=== PATIENT | female | born 1955 | race Caucasian/White ===

== ENCOUNTER 2023-01-29 12:22 | Inpatient (IN) ==
[2023-01-29 13:46] LABS: Basophils # (auto) 0.04 K/uL (0-0.2); Basophils % (auto) 0.3 %; Hemoglobin 15.2 g/dl (12.0-16.0); Immature Granulocytes # (auto) 0.06 K/uL (0.01-0.20); Immature Granulocytes % (auto) 0.5 %; Lymphocytes # (auto) 0.83 K/uL (1.2-3.4); Lymphocytes % (auto) 6.3 %; Mean Corpuscular Hemoglobin 30.3 pg (25.0-34.0); Mean Corpuscular Hgb Conc 34.5 g/dL (32.0-36.0); Mean Corpuscular Volume 87.6 fL (80.0-100.0); Mean Platelet Volume 10.8 fL (9.4-12.4); Monocytes # (auto) 0.99 K/uL (0.11-0.59); Monocytes % (auto) 7.5 %; Neutrophils % (auto) 85.4 %; Platelet Count 300 K/uL (130-400); RDW Coefficient of Variation 13.9 % (11.5-14.5); RDW Standard Deviation 44.3 fL (36.4-46.3); Red Blood Count 5.02 M/uL (4.20-5.40); White Blood Count 13.12 K/ul (4.8-10.8)
[2023-01-29 13:59] LABS: Alanine Aminotransferase 52 U/L (7-52); Albumin Level 4.3 gm/dl (3.4-5.0); Alkaline Phosphatase 131 U/L (34-104); Anion Gap 10 (3-11); Aspartate Aminotransferase 99 U/L (13-39); BUN Creatinine Ratio 29.4 (10-20); Bilirubin,Total 0.8 mg/dl (0.2-1.0); Blood Urea Nitrogen 25 mg/dl (6-23); Calcium 10.8 mg/dl (8.6-10.3); Carbon Dioxide 25 mmol/L (21-32); Chloride 100 mmol/L (98-107); Est GFR (African American) 82.2 ml/min; Est GFR (Non-African American) 70.9 ml/min; Globulin 4.2 gm/dl (2.5-4.0); Glucose 114 mg/dl (70-99(Fasting)); Potassium 4.1 mmol/L (3.5-5.1); Sodium 135 mmol/L (136-145); Total Protein 8.5 gm/dl (6.0-8.3)
[2023-01-29 14:09] LABS: Troponin I High Sensitivity 336.1 pg/ml (0-14)
[2023-01-29] MEDS ORDERED: SODIUM CHLORIDE 0.9% 1000ML 2,000 ML IV ONE (14:34)
--- NOTE | 2023-01-29 14:37 | Emergency Department Note ---
Impression & Plan Bilateral pulmonary embolism, COVID-19, Acute dehydration, Rhabdomyolysis, Elevated troponin ED Provider Note Name: HARRISON WALLACE Age: 67 Sex: F Arrives Via: Walk-In Informant: Patient, Family ED Provider: Car Douglas MD Chief Complaint: Illness Impression: As per impression above Medical Decision Makin-year-old female with a history of anxiety, hypertension, smoking arrives for evaluation of worsening shortness of breath, weakness, fatigue. Patient arrives somewhat confused unwell appearing dehydrated diffuse wheezing and mild hypoxia to 90-92% on room air. She is complaining of left flank pain but also body aches and generalized weakness. Her story is a bit vague on top of this. Patient though does not look well. Labs, blood cultures, lactate sent. Initial EKG reveals sinus tachycardia with nonspecific ST changes but no overt STEMI morphology. She was given empiric IV fluids 2 L given how dehydrated she appears. She was empirically given IV cefepime for sepsis management. Given the confusion a CT of the head was obtained which is fortunately negative. A CT of the chest with angio was obtained as she has an elevated troponin and mild hy poxia. This reveals multiple bilateral PEs. There is no overt heart strain appreciated. I furthermore got a CT of the abdomen pelvis given the left flank pain which is unremarkable. I am suspicious the left flank pain may be due to a PE versus just muscle spasms from what eventually tested positive for COVID. After fluids, DuoNeb patient is vastly improved his breathing much more comfortably and is in minimal distress. Confusion has essentially resolved and she is answering questions much more easily. She is not overly excited about staying but I think it is important she stay. Her labs are consistent with some rhabdo which would explain the amount of body discomfort she has as well as the fact she is just been sitting around. I am suspicious that her primary issue is likely COVID. COVID likely led to worsening weakness body aches sitting around as well as the PEs. This would also along with the elevated troponin. I did discuss the case with hospitalist will bring her in. I discussed steroids with them and they will manage it from there. I did start the patient on heparin given her multiple PEs after discussing the risks and benefits with the patient. Triage/Nursing Notes reviewed by Me Differentials: Infection, dehydration, metabolic abnormality, hypo/hyperglycemia, electrolyte disturbance, anemia, hypoxia, cardiac sources, i ntracerebral event, toxicologic, neurologic, as well as other pathologies. Vital Signs: reviewed and remarkable for mild hypoxia, tachycardia Interventions: 2 L normal saline bolus IV, heparin IV, cefepime IV, DuoNeb Labs:Reviewed and remarkable for elevated troponin, elevated CK, multiple other lab abnormalities all reviewed by me Imaging:Reviewed chest x-ray as per my interpretation no overt infiltrate pneumothorax or effusion CT of the head as per my informal interpretation no intracranial hemorrhage/mass. Confirmed by radiologist. CT of the chest with IV contrast angio as per my interpretation bilateral PEs. Confirmed by radiologist see their full report. CT abdomen pelvis with IV contrast as per my informal interpretation reveals no obstruction, free air, free fluid, renal stone or other concerning finding. This was confirmed by radiologist. EKG as per my interpretation. Indication shortness of breath. Sinus tachycardia at 106 bpm QTc 467. There is no ectopy. There are nonspecific ST changes throughout without overt STEMI morphology. There is no previous EKG for comparison. Cardiac/Tele Monitoring: Cardiac Monitoring: An Order was placed for continuous cardiac monitoring. The monitor shows a rate of 105 with a sinus tach rhythm. Consults:[facility] Radiologist regarding PEs on CT Plan: Disposition:Hospitalization. Condition: Fair History of Present Illness:67-year-old female arrives for evaluation of illness. Patient with several days of worsening fatigue exhaustion. She started having left lower back pain over the last few days. She has apparently been just sitting in a chair confused for the last 24 hours. Patient has not been eating or drinking for the last few days either. She notes her low back hurts her and she has body aches all over. She notes some mild neck pain but this is chronic. No photophobia or neck stiffness. Patient notes a history of smoking and does not feel her breathing is worse than typical, she does have a diagnosis of COPD per family. Patient denies any new medications or anti biotics. She has not taken her medicines in several days. She has no history of cardiac disease that she is aware of. Past History: Hypertension and anxiety. Right arm surgery Home Medications: Blood pressure medication and Xanax Allergies:NKDA Vitals:Blood Pressure: 152/97, Pulse 105, RR 18, T 36.5C, O2 93% on RA Physical Exam: GENERAL: Patient is ill appearing and in mild distress. NECK: No masses appreciated, nomeningismus, trachea is midline. RESPIRATORY: No dyspnea. Clear to auscultation and equal bilaterally. No wheeze, no rhonchi. CARDIOVASCULAR: Tachycardic.No murmurs, rubs, gallops appreciated. GASTROINTESTINAL: Abdomen soft, non-tender, no peritonitis.Bowel sounds positive.No masses appreciated. BACK: No midline tenderness, vague left CVA tenderness EXTREMITIES: Normal motion all extremities, no cyanosis, no edema. NEUROLOGIC: Patient is awake answering questions sometimes incorrectly somewhat confused, no neurodeficits appreciated SKIN: No rash, no jaundice, no diaphoresis. PSYCH: Appropriate GCS: 15 ED Course: Times/Reassessments: Extensive repeat evaluations. Heart rate has come down with fluids and her mental status is vastly improved after hydration and breathing treatment. Critical Care: I have personally spent 45 minutes of critical care time in the direct management of this patient. Acute bilateral PEs secondary to COVID in setting of elevated CK, Troponin and confusion. This was a life/limb threatening event. This 45 minutes is in excess of all separately billable procedures. Car Douglas MD Past Med/Surg History Medical History (Updated 01/29/23 @ 21:49 by Car Douglas MD) Bilateral pulmonary embolism Social History Smoking Status: Current some day smoker Tobacco Type: Cigarettes Second Hand Exposure: No; Do You Dip or Chew Tobacco: No; Tobacco Cessation Education Requested by Patient: No Hx Alcohol Use: Yes Alcohol type: beer Hx Substance Use: No Preferred Language: Spanish Communication Ability: Impaired Lead Housekeeper Required: No Beliefs That Will Affect Care: None Current Living Situation: Spouse Other Information That Helps Us Care for You: No Feels Safe at Home: Yes Safety Concerns: Feels Safe At This Time Assistive Devices: None Allergies Allergies Allergy/AdvReac Type Severity Reaction Status Date / Time No Known Allergies Allergy Unverified 01/29/23 16:59 Home Meds Home Medications Medication Instructions Recorded Confirmed acetaminophen 325 mg tablet 325 mg PO DAILY PRN Pain 01/29/23 01/29/23 (Tylenol) alprazolam 1 mg tablet 1 mg PO TID 01/29/23 01/29/23 amlodipine 5 mg-benazepril 10 mg 1 cap PO DAILY 01/29/23 01/29/23 capsule Results & Data (ED) Vital Signs Vital Signs - 24 hr 01/29/23 12:31 01/29/23 14:28 01/29/23 14:26 Temperature 36.5 C 37.2 C Temperature Source Temporal Artery Scan Oral Pulse Rate 115 H 105 H Pulse Rate [Right Finger] 106 H Pulse Rhythm [Right Finger] Regular Pulse Strength [Right Finger] Normal Respiratory Rate 18 22 Respiratory Effort / Characteristics Non-Labored Spontaneous Respiratory Depth Normal Respiratory Pattern Regular Blood Pressure 152/97 H Blood Pressure [Right Arm] 157/107 H Blood Pressure Mean 115 Blood Pressure Mean [Right Arm] 123 Blood Pressure Position [Right Arm] Semi-fowlers Pulse Oximetry 93 92 Oxygen Delivery Method Room Air Room Air Oxygen Flow Rate Sepsis Recent Fever Within 48 Hours No Sepsis New/Unexplained Change in Mental Status N/A Sepsis Action Taken by Nursing No Action Required 01/29/23 16:00 Temperature 37.2 C Temperature Source Oral Pulse Rate Pulse Rate [Right Finger] 105 H Pulse Rhythm [Right Finger] Regular Pulse Strength [Right Finger] Normal Respiratory Rate 22 Respiratory Effort / Characteristics Non-Labored Spontaneous Respiratory Depth Normal Respiratory Pattern Regular Blood Pressure Blood Pressure [Right Arm] 143/91 H Blood Pressure Mean Blood Pressure Mean [Right Arm] 108 Blood Pressure Position [Right Arm] Semi-fowlers Pulse Oximetry 93 Oxygen Delivery Method Nasal Cannula Oxygen Flow Rate 2 Sepsis Recent Fever Within 48 Hours Sepsis New/Unexplained Change in Mental Status Sepsis Action Taken by Nursing Laboratory Data 01/29/23 13:16 01/29/23 13:16 Lab Results 01/29/23 01/29/23 01/29/23 Range/Units 13:16 13:16 15:02 WBC 13.12 H (4.8-10.8) K/ul RBC 5.02 (4.20-5.40) M/uL Hgb 15.2 (12.0-16.0) g/dl Hct 44.0 (37.0-47.0) % MCV 87.6 (80.0-100.0) fL MCH 30.3 (25.0-34.0) pg MCHC 34.5 (32.0-36.0) g/dL RDW Std Deviation 44.3 (36.4-46.3) fL RDW Coeff of Laquita 13.9 (11.5-14.5) % Plt Count 300 (130-400) K/uL MPV 10.8 (9.4-12.4) fL Immature Gran % (Auto) 0.5 % Neut % (Auto) 85.4 % Lymph % (Auto) 6.3 % Austin % (Auto) 7.5 % Eos % (Auto) 0.0 % Baso % (Auto) 0.3 % Neut # (Auto) 11.20 H (1.40-6.50) K/uL Lymph # (Auto) 0.83 L (1.2-3.4) K/uL Austin # (Auto) 0.99 H (0.11-0.59) K/uL Eos # (Auto) 0.00 (0-0.50) K/uL Baso # (Auto) 0.04 (0-0.2) K/uL Immature Gran # (Auto) 0.06 (0.01-0.20) K/uL Sodium 135 L (136-145) mmol/L Potassium 4.1 (3.5-5.1) mmol/L Chloride 100 (98-107) mmol/L Carbon Dioxide 25 (21-32) mmol/L Anion Gap 10 (3-11) BUN 25 H (6-23) mg/dl Creatinine 0.85 (0.6-1.2) mg/dl Est Cr Clr Drug Dosing Not Reportable Est GFR ( Amer) 82.2 ml/min Est GFR (Non-Af Amer) 70.9 ml/min BUN/Creatinine Ratio 29.4 H (10-20) Glucose 114 H (70-99(Fasting)) mg/dl Lactate (0.4-2.0) mmol/L Calcium 10.8 H (8.6-10.3) mg/dl Magnesium 2.1 (1.7-2.4) mg/dl Total Bilirubin 0.8 (0.2-1.0) mg/dl AST 99 H (13-39) U/L ALT 52 (7-52) U/L Alkaline Phosphatase 131 H (34-104) U/L Total Creatine Kinase 2389 H (26-192) U/L Troponin I High Sens 336.1 H* 337.3 H* (0-14) pg/ml C-Reactive Protein 12.69 H (0-0.5) mg/dl Total Protein 8.5 H (6.0-8.3) gm/dl Albumin 4.3 (3.4-5.0) gm/dl Globulin 4.2 H (2.5-4.0) gm/dl Albumin/Globulin Ratio 1.0 (0.9-2) Procalcitonin (0-0.5) ng/ml Adenovirus (PCR) (NotDetected) B. pertussis DNA (PCR) (NotDetected) B.parapertussis DNA PCR (NotDetected) C. pneumoniae DNA (PCR) (NotDetected) Coronavirus OC43 (PCR) (NotDetected) Coronavirus HKU1 (PCR) (NotDetected) Coronavirus 229E (PCR) (NotDetected) SARS-CoV-2 (PCR) (NotDetected) Coronavirus NL63 (PCR) (NotDetected) Human Metapneumovir PCR (NotDetected) Influenza Type A (PCR) (NotDetected) Influenza Type B (PCR) (NotDetected) M. pneumoniae (PCR) (NotDetected) Parainfluenza 1 (PCR) (NotDetected) Parainfluenza 2 (PCR) (NotDetected) Parainfluenza 3 (PCR) (NotDetected) Parainfluenza 4 (PCR) (NotDetected) RSV (PCR) (NotDetected) Entero/Rhino (PCR) (NotDetected) 01/29/23 01/29/23 01/29/23 Range/Units 15:02 15:08 15:30 WBC (4.8-10.8) K/ul RBC (4.20-5.40) M/uL Hgb (12.0-16.0) g/dl Hct (37.0-47.0) % MCV (80.0-100.0) fL MCH (25.0-34.0) pg MCHC (32.0-36.0) g/dL RDW Std Deviation (36.4-46.3) fL RDW Coeff of Laquita (11.5-14.5) % Plt Count (130-400) K/uL MPV (9.4-12.4) fL Immature Gran % (Auto) % Neut % (Auto) % Lymph % (Auto) % Austin % (Auto) % Eos % (Auto) % Baso % (Auto) % Neut # (Auto) (1.40-6.50) K/uL Lymph # (Auto) (1.2-3.4) K/uL Austin # (Auto) (0.11-0.59) K/uL Eos # (Auto) (0-0.50) K/uL Baso # (Auto) (0-0.2) K/uL Immature Gran # (Auto) (0.01-0.20) K/uL Sodium (136-145) mmol/L Potassium (3.5-5.1) mmol/L Chloride (98-107) mmol/L Carbon Dioxide (21-32) mmol/L Anion Gap (3-11) BUN (6-23) mg/dl Creatinine (0.6-1.2) mg/dl Est Cr Clr Drug Dosing Est GFR ( Amer) ml/min Est GFR (Non-Af Amer) ml/min BUN/Creatinine Ratio (10-20) Glucose (70-99(Fasting)) mg/dl Lactate 1.4 (0.4-2.0) mmol/L Calcium (8.6-10.3) mg/dl Magnesium (1.7-2.4) mg/dl Total Bilirubin (0.2-1.0) mg/dl AST (13-39) U/L ALT (7-52) U/L Alkaline Phosphatase (34-104) U/L Total Creatine Kinase (26-192) U/L Troponin I High Sens (0-14) pg/ml C-Reactive Protein (0-0.5) mg/dl Total Protein (6.0-8.3) gm/dl Albumin (3.4-5.0) gm/dl Globulin (2.5-4.0) gm/dl Albumin/Globulin Ratio (0.9-2) Procalcitonin 0.15 (0-0.5) ng/ml Adenovirus (PCR) Not Detected (NotDetected) B. pertussis DNA (PCR) Not Detected (NotDetected) B.parapertussis DNA PCR Not Detected (NotDetected) C. pneumoniae DNA (PCR) Not Detected (NotDetected) Coronavirus OC43 (PCR) Not Detected (NotDetected) Coronavirus HKU1 (PCR) Not Detected (NotDetected) Coronavirus 229E (PCR) Not Detected (NotDetected) SARS-CoV-2 (PCR) DETECTED A* (NotDetected) Coronavirus NL63 (PCR) Not Detected (NotDetected) Human Metapneumovir PCR Not Detected (NotDetected) Influenza Type A (PCR) Not Detected (NotDetected) Influenza Type B (PCR) Not Detected (NotDetected) M. pneumoniae (PCR) Not Detected (NotDetected) Parainfluenza 1 (PCR) Not Detected (NotDetected) Parainfluenza 2 (PCR) Not Detected (NotDetected) Parainfluenza 3 (PCR) Not Detected (NotDetected) Parainfluenza 4 (PCR) Not Detected (NotDetected) RSV (PCR) Not Detected (NotDetected) Entero/Rhino (PCR) Not Detected (NotDetected) Administered Medications Heparin Sodium/Dextrose (Heparin Sodium/Dextrose) 25,000 units in 500 mls @ 20 mls/hr IV .Q24H DINO; Protocol Stop: 02/28/23 17:14 Last Admin: 01/29/23 17:45 Dose: 1,000 units/hr, 20 mls/hr Documented By: AP Co-signed By: MES Thiamine HCl 100 mg/ Syringe 10 mls @ 2 mls/min IV QAM DINO Stop: 02/28/23 18:59 Last Admin: 01/29/23 20:37 Dose: 2 mls/min Documented By: PK Folic Acid 1 mg/ Syringe 10 mls @ 5 mls/min IV QAM DINO Stop: 02/28/23 18:59 Last Admin: 01/29/23 20:37 Dose: 5 mls/min Documented By: PK Pantoprazole Sodium 40 mg/ (Syringe) 10 mls @ 5 mls/min IV BID DINO Stop: 02/28/23 20:59 Last Admin: 01/29/23 20:37 Dose: 5 mls/min Documented By: PK Cefepime HCl 2,000 mg/ Syringe 20 mls @ 5 mls/min IV Q8H DINO; Protocol Stop: 02/05/23 21:59 Last Admin: 01/29/23 20:38 Dose: 5 mls/min Documented By: PK Discontinued Medications Albuterol (Albut/Ipratrop 3mg/0.5mg Neb 3 Ml Vial) 12 ml NEB ONE ONE; Protocol Stop: 01/29/23 16:04 Last Admin: 01/29/23 16:21 Dose: 12 ml Documented By: CAW Gabapentin (Gabapentin 600 Mg Tab) 1,200 mg PO NOW ONE Stop: 01/29/23 18:48 Last Admin: 01/29/23 20:36 Dose: 1,200 mg Documented By: PK Heparin Sodium (Porcine) (Heparin Sod (Porcine) 1000 Unit/Ml) 1 units IV NOW ONE Stop: 01/29/23 17:13 Last Admin: 01/29/23 18:55 Dose: Not Given Documented By: MES Heparin Sodium (Porcine) (Heparin Sod (Porcine) 1000 Unit/Ml) 4,000 units IV NOW ONE Stop: 01/29/23 17:46 Last Admin: 01/29/23 17:44 Dose: 4,000 units Documented By: AP Co-signed By: STEVEN Heparin Sodium/Dextrose (Heparin Iv Adult Wt-Based Standard With Bolus Protocol) 1 each IV Q15M [facility]; Protocol Stop: 01/29/23 17:46 Last Admin: 01/29/23 18:57 Dose: Not Given Documented By: Admin: 01/29/23 18:57 Dose: Not Given Documented By: Admin: 01/29/23 18:57 Dose: Not Given Documented By: Admin: 01/29/23 18:55 Dose: Not Given Documented By: STEVEN Sodium Chloride (Nss 1000ml) 2,000 mls @ 999 mls/hr IV .Q2H1M ONE Stop: 01/29/23 16:34 Last Infusion: 01/29/23 21:26 Dose: 0 mls/hr Documented By: Admin: 01/29/23 14:59 Dose: 999 mls/hr Documented By: CHARISSEW Cefepime HCl (Maxipime) 2,000 mg in 20 mls @ 5 mls/min IV NOW STA; Protocol Stop: 01/29/23 15:27 Last Admin: 01/29/23 15:37 Dose: 5 mls/min Documented By: STEVEN Vancomycin HCl 1,250 mg/ (Sodium Chloride) 525 mls @ 200 mls/hr IV NOW ONE Stop: 01/29/23 19:14 Last Admin: 01/29/23 17:02 Dose: 200 mls/hr Documented By: COSMO Ioversol (Ioversol 350 Mg 125ml Prefilled Syringe) 117 ml IV ONCE ONE Stop: 01/29/23 15:55 Last Admin: 01/29/23 15:54 Dose: 117 ml Documented By: PAIGE Imaging Data Radiologist's Impression: Chest X-Ray 01/29/23 14:34 XR chest 1V portable HISTORY: 67 years-old Female Confusion, SOB, AMS acutely altered mental status COMPARISON: None TECHNIQUE: AP view of the chest FINDINGS: Cardiomediastinal and hilar silhouettes are within normal limits. Atherosclerosis of the aorta. No pneumothorax, large pleural effusion, or overt pulmonary edema or lobar airspace consolidation. Bones appear grossly intact. IMPRESSION: No acute process. ACT 112: Negative or not required by law. The above report was generated using voice recognition software. It may contain grammatical, syntax or spelling errors. Electronically signed by: Kris Morel M.D. 01/29/2023 2:56 PM Abdomen/Pelvis CT 01/29/23 15:23 CT abd pelvis IV con only CLINICAL HISTORY: left flank pain, septic TECHNIQUE: Helical axial images of the abdomen and pelvis were obtained and displayed. Automated dose lowering techniques and/or adjustment according to patient size were utilized for this exam. This exam was performed with intravenous contrast. COMPARISON: None available at the time of this dictation. FINDINGS: Lower chest: Bibasilar atelectasis versus scarring is seen. Liver: Unremarkable. No focal lesions are seen. Gallbladder and biliary tree: No calcified gallstones. Normal caliber wall. No intra- or extrahepatic biliary ductal dilation. Pancreas: Unremarkable, no focal lesions. Spleen: Unremarkable. Adrenals: Unremarkable. Kidneys and ureters: Unremarkable. Bladder: Unremarkable. Reproductive organs: Unremarkable. Bowel: Diverticulosis is seen without evidence of diverticulitis. The appendix is normal. Lymph nodes Retroperitoneal: Unremarkable. Pelvic: Unremarkable. Mesenteric: Unremarkable. Peritoneum: Normal. Vessels: Atherosclerotic calcifications are seen. Abdominal wall: A fat-containing umbilical hernia is seen. Bones: Degenerative changes in the visualized spine. IMPRESSION: No acute abnormalities and in particular no evidence of left obstructive stone or diverticulitis. Diverticulosis is seen. ACT 112: Negative or not required by law. Electronically signed by: Carlos Pederson M.D. 01/29/2023 4:11 PM Chest CTA 01/29/23 15:23 CT angio chest PE protocol CT DOSE: 1572.67 mGy.cm HISTORY: 67 years-old Female with PE. Acute shortness of breath TECHNIQUE: Multiple CTA images of the chest were obtained after the intravenous administration of 117 ml Optiray. Coronal and sagittal MIPS were obtained from the axial data set and were submitted for review. All measurements were obtained according to NASCET criteria. A dose lowering technique was utilized adhering to the principles of ALARA. COMPARISON: CT abdomen and pelvis of same day FINDINGS: CTA: Mild cardiomegaly with moderate coronary artery calcifications. Atherosclerosis of the thoracic aorta without aneurysm or dissection. Segmental and subsegmental pulmonary emboli are noted within a bibasilar predominant distribution however are noted within all lobes bilaterally. Respiratory motion artifact limits the study. Mild straightening of the intraventricular septum. CT CHEST: Multinodular thyroid. No lymphadenopathy. Emphysema with bronchitis. No pneumothorax, pleural effusion or overt pulmonary edema. Subsegmental bibasilar atelectasis. No suspicious pulmonary nodules or masses. Central airways are patent. No acute process of the imaged upper abdomen. Unremarkable soft tissues. No acute fracture. IMPRESSION: 1. Limited exam secondary to respiratory motion artifact. 2. Bilateral segmental and subsegmental pulmonary emboli with findings suspicious for associated right heart strain. 3. No pleural effusion or airspace consolidation. 4. Emphysema with bronchitis. ACT 112: Negative or not required by law. The above report was generated using voice recognition software. It may contain grammatical, syntax or spelling errors. Electronically signed by: Kris Morel M.D. 01/29/2023 4:[address] 01/29/23 15:[address] DOSE: HISTORY: Confusion TECHNIQUE: Multiaxial CT images of the head were performed without the use of intravenous contrast. Automated exposure control was utilized for this study. A dose lowering technique was utilized adhering to the principles of ALARA. Comparison: None. Findings: The paranasal sinuses and mastoid air cells are clear. The calvarium and skull base are intact. There is no mass, hematoma, midline shift, acute infarct. White matter hypodensity is nonspecific but suggestive of microvascular ischemic change. The ventricles and sulci demonstrate mild age-related involutional changes. Impression: No acute intracranial abnormality. Atrophy and microvascular ischemic changes. ACT 112: Negative or not required by law. Electronically signed by: Devaughn Ritchie M.D. 01/29/2023 4:09 PM Discharge Plan Visit Data Chief Complaint: Back Injury/Pain Stated Complaint: BACK PAIN, FEET SWOLLEN ED Provider: Car Douglas Discharge Problem: Bilateral pulmonary embolism, COVID-19, Acute dehydration, Rhabdomyolysis, Elevated troponin Patient Disposition: Admitted As Inpatient Discharge Instructions Interventions: ED Discharge Assessment Last Done: 01/29/23 19:17
--- NOTE | 2023-01-29 14:57 | XRay Report ---
XR chest 1V portable HISTORY: 67 years-old Female Confusion, SOB, AMS acutely altered mental status COMPARISON: None TECHNIQUE: AP view of the chest FINDINGS: Cardiomediastinal and hilar silhouettes are within normal limits. Atherosclerosis of the aorta. No pn eumothorax, large pleural effusion, or overt pulmonary edema or lobar airspace consolidation. Bones a ppear grossly intact. IMPRESSION: No acute process. ACT 112: Negative or not required by law. The above report was generated using voice recognition software. It may contain grammatical, syntax o r spelling errors. Electronically signed by: Kris Morel M.D. 01/29/2023 2:56 PM
[2023-01-29] MEDS ORDERED: CEFEPIME 2,000 MG/20 ML VIAL IV STA (15:24)
[2023-01-29 15:52] LABS: C Reactive Protein 12.69 mg/dl (0-0.5)
[2023-01-29] MEDS ORDERED: IOVERSOL 350 MG 125mL Prefilled Syringe IV ONE (15:54)
[2023-01-29 16:01] LABS: Magnesium 2.1 mg/dl (1.7-2.4); Troponin I High Sensitivity 337.3 pg/ml (0-14)
[2023-01-29] MEDS ORDERED: ALBUT/IPRATROP 3MG/0.5MG NEB 3 ML VIAL NEB ONE (16:03)
--- NOTE | 2023-01-29 16:10 | CT Scan Report ---
HEAD CT NONCONTRAST CT DOSE: HISTORY: Confusion TECHNIQUE: Multiaxial CT images of the head were performed without the use of intravenous contrast. A utomated exposure control was utilized for this study. A dose lowering technique was utilized adheri ng to the principles of ALARA. Comparison: None. Findings: The paranasal sinuses and mastoid air cells are clear. The calvarium and skull base are int act. There is no mass, hematoma, midline shift, acute infarct. White matter hypodensity is nonspecifi c but suggestive of microvascular ischemic change. The ventricles and sulci demonstrate mild age-rela errol involutional changes. Impression: No acute intracranial abnormality. Atrophy and microvascular ischemic changes. ACT 112: Negative or not required by law. Electronically signed by: Devaughn Ritchie M.D. 01/29/2023 4:09 PM
--- NOTE | 2023-01-29 16:12 | CT Scan Report ---
CT abd pelvis IV con only CLINICAL HISTORY: left flank pain, septic TECHNIQUE: Helical axial images of the abdomen and pelvis were obtained and displayed. Automated dose lowering techniques and/or adjustment according to patient size were utilized for this exam. This e xam was performed with intravenous contrast. COMPARISON: None available at the time of this dictation. FINDINGS: Lower chest: Bibasilar atelectasis versus scarring is seen. Liver: Unremarkable. No focal lesions are seen. Gallbladder and biliary tree: No calcified gallstones. Normal caliber wall. No intra- or extrahepatic biliary ductal dilation. Pancreas: Unremarkable, no focal lesions. Spleen: Unremarkable. Adrenals: Unremarkable. Kidneys and ureters: Unremarkable. Bladder: Unremarkable. Reproductive organs: Unremarkable. Bowel: Diverticulosis is seen without evidence of diverticulitis. The appendix is normal. Lymph nodes Retroperitoneal: Unremarkable. Pelvic: Unremarkable. Mesenteric: Unremarkable. Peritoneum: Normal. Vessels: Atherosclerotic calcifications are seen. Abdominal wall: A fat-containing umbilical hernia is seen. Bones: Degenerative changes in the visualized spine. IMPRESSION: No acute abnormalities and in particular no evidence of left obstructive stone or diverticulitis. Div erticulosis is seen. ACT 112: Negative or not required by law. Electronically signed by: Carlos Pederson M.D. 01/29/2023 4:11 PM
--- NOTE | 2023-01-29 16:13 | Electrocardiogram Report ---
Test Reason : Blood Pressure : / mmHG Vent. Rate : 106 BPM Atrial Rate : 106 BPM P-R Int : 154 ms QRS Dur : 072 ms QT Int : 352 ms P-R-T Axes : 046 062 044 degrees QTc Int : 467 ms Sinus tachycardia Minimal voltage criteria for LVH, may be normal variant Borderline ECG No previous ECGs available Confirmed by Almas Ballard ([id number]) on 01/29/2023 4:12:49 PM Referred By: Confirmed By:Almas Ballard
[2023-01-29] MEDS ORDERED: VANCOMYCIN HCL 1,250 MG in SODIUM CHLORIDE 0.9% 500 ML IV ONE (16:37)
[2023-01-29] MEDS ORDERED: VANCOMYCIN CONSULT ACTIVE PRN ×2 (16:37→18:47)
--- NOTE | 2023-01-29 16:41 | CT Scan Report ---
CT angio chest PE protocol CT DOSE: 1572.67 mGy.cm HISTORY: 67 years-old Female with PE. Acute shortness of breath TECHNIQUE: Multiple CTA images of the chest were obtained after the intravenous administration of 117 ml Optiray. Coronal and sagittal MIPS were obtained from the axial data set and were submitted for review. All measurements were obtained according to NASCET criteria. A dose lowering technique was u tilized adhering to the principles of ALARA. COMPARISON: CT abdomen and pelvis of same day FINDINGS: CTA: Mild cardiomegaly with moderate coronary artery calcifications. Atherosclerosis of the thoracic aorta without aneurysm or dissection. Segmental and subsegmental pulmonary emboli are noted within a bibas ilar predominant distribution however are noted within all lobes bilaterally. Respiratory motion darrin fact limits the study. Mild straightening of the intraventricular septum. CT CHEST: Multinodular thyroid. No lymphadenopathy. Emphysema with bronchitis. No pneumothorax, pleural effusio n or overt pulmonary edema. Subsegmental bibasilar atelectasis. No suspicious pulmonary nodules or ma sses. Central airways are patent. No acute process of the imaged upper abdomen. Unremarkable soft tissues. No acute fracture. IMPRESSION: 1. Limited exam secondary to respiratory motion artifact. 2. Bilateral segmental and subsegmental pulmonary emboli with findings suspicious for associated righ t heart strain. 3. No pleural effusion or airspace consolidation. 4. Emphysema with bronchitis. ACT 112: Negative or not required by law. The above report was generated using voice recognition software. It may contain grammatical, syntax o r spelling errors. Electronically signed by: Kris Morel M.D. 01/29/2023 4:39 PM
[2023-01-29 16:44] LABS: Appearance Urine Clear (Clear); Bacteria Urine Automated Negative (Negative); Bilirubin Urine Negative (Negative); Blood Urine 1+ (Negative); Color Urine Yellow; Epithelial Cell Urine Auto 20-30 /lpf (0-5); Glucose Urine UA Negative (Negative); Ketones Urine Trace (Negative); Leukocyte Esterase Urine 1+ (Negative); Nitrite Urine Negative (Negative); Protein Urine Trace (Negative); RBC Urine Automated 0-4 /hpf (0-4); Specific Gravity Urine 1.026 (1.000-1.030); Urobilinogen Urine Negative (Negative)
[2023-01-29] MEDS ORDERED: Heparin IV Adult Wt-Based Standard WITH Bolus Protocol IV STA (16:56)
--- NOTE | 2023-01-29 17:00 | History & Physical Report ---
Date of Service January 29, 2023 Assessment & Plan (1) Bilateral pulmonary embolism: Plan Ms. Dacosta is a 67 year old female that presents to the ED today with fatigue and decreased appetite with back pain and lower extremity swelling. Chest CTA positive for bilateral segmental/subsegmental PE with right heart strain; troponin 337.3 which I suspect is related to the right heart strain and PE. Head CT negative for acute intracranial process. Abdominal and pelvis CT reports diverticulosis; otherwise unremarkable. Chest x-ray negative for acute cardiopulmonary disease.Leukocytosis WBC 13.12, lactate 1.4, CRP elevated 12.69, Pro-Tray negative. Covid + in the ED. Received one hour long neb. Trace ketonuria with WBC and UA 10-30. Started on vancomycin plus cefepime in the ED with IV fluids.Started on Heparin gtt; obtain ECHO, BL LE doppler US, Cardiology and Pulmonary consultation; empiric abx for treatment of leukocytosis with elevated neutrophils. Overall, generally poorly cared for individual. Bilateral pulmonary embolism with R heart strain: Admit to PCU WELLS score: 6 Chest CTA revealed segmental/subsegmental PE with right heart strain Obtain bilateral lower extremity venous Doppler Troponin 337.3; Initially 336; will trend x1;suspect this is related to right heart strain CRP 12.69, will check BNP Started on Heparin drip in ED ECG in AM; ST on monitor. Audible IV/ LSB murmur. Cardiology and Pulm consult placed Covid positive: WBC 13.12; empirically treat with Vanco and Cefepime and adjust based on culture results Blood, urine and stool cultures pending Consider steroids on 2LNC SpO2 97% HTN: Takes amlodipine-benazepril; continue Alcohol Use Disorder: Reports drinking 8-10 beers most days; last drink was yesterday AWSS scale in place; Thiamine and Folic Acid IV for now Hold on Banana bag until BNP back Tremulous on exam Check Vitamin B12 Anxiety and Depression: Takes alprazolam; continue Receptive to [facility]; consult placed Requested to speak to them by herself. Disposition: PCP:Dr. [place] independent provider CODE STATUS: Full code VTE prophylaxis: On Heparin gtt I spent a total of 88 minutes coordinating, documenting, and providing care for this patient excluding time spent in the performance of separately billed services. All of the aforementioned completed while collaborating with the assigned attending physician for a full treatment plan. Please see their addendum for further details. History of Present Illness Chief Complaint: PE Primary Care Provider: [place] Roland Ms. Dacosta is a 67 year old female that presents to the ED today with fatigue and decreased appetite with back pain and lower extremity swelling that started over the past three days. She is quite sedentary at home and per her family is in her bedroom a lot isolating herself. She denies any recent illness or cough; however, tested positive for Covid in the ED without hypoxia. Chest CTA positive for bilateral segmental/subsegmental PE with right heart strain; troponin 337.3 which I suspect is related to the right heart strain and PE. Head CT negative for acute intracranial process. Abdominal and pelvis CT reports diverticulosis; otherwise unremarkable. Chest x-ray negative for acute cardiopulmonary disease. Leukocytosis WBC 13.12, lactate 1.4, CRP elevated 12.69, Pro-Tray negative. Trace ketonuria with WBC and UA 10-30. Pt admits to ingesting 8-10 beers most days; her last drink was two days ago. Started on vancomycin plus cefepime in the ED with IV fluids. Patient denies headache, dizziness, visual or auditory changes, nausea, vomiting, diarrhea, abdominal pain or tenderness, urinary or bowel changes, recent falls or trauma. Sitting in her hospital bed she is AAOx4 but slow to respond and not back to baseline. Denies tobacco or recreational drug use. General weakness BL UP 4/5, BL LE 4/5; no edema. Plan to focus on PE treatment with ECHO, Doppler ultrasound, Cardiology consult, Pulmonary consult, empiric abx for treatment of leukocytosis with elevated neutrophils. Overall, generally poorly cares for herself. Patient will be admitted for further evaluation and management. Please see A/P for further details Allergies Allergy/AdvReac Type Severity Reaction Status Date / Time No Known Allergies Allergy Unverified 01/29/23 16:59 Home Medications Medication Instructions Recorded Confirmed Type acetaminophen 325 mg tablet 325 mg PO DAILY PRN Pain 01/29/23 01/29/23 History (Tylenol) alprazolam 1 mg tablet 1 mg PO TID 01/29/23 01/29/23 History amlodipine 5 mg-benazepril 10 mg 1 cap PO DAILY 01/29/23 01/29/23 History capsule Past Med/Surg History Medical History (Updated 01/29/23 @ 16:57 by ROSALBA Rivera) Bilateral pulmonary embolism Social History Smoking Status: Former smoker Preferred Language: Hungarian Feels Safe at Home: Yes Review of Systems Review of Systems: Neuro: (-) Falls, trauma, slurred speech HEENT: (-) JACK, dizziness, dysphagia, visual or auditory changes CV: (-) CP, palpitations, swelling Resp: (+) SOB GI: (-) appetite changes, N/V/D, bowel changes : (-) urinary changes Skin: (-) rashes Psych: (+) anxiety, depression (+) disheveled Physical Exam Physical Exam: Neuro: AAOx4, PERRLA, no aphagia, memory changes, CNII-XII grossly intact HEENT: head normocephalic, dry mucus membranes CV: S1/S2, (+) LSB Grade IV/ murmur, (-) edema, cap refill < 3 seconds Resp: Lungs expiratory wheezes upper lung heath. On 2LNC GI: Abdomen S/NT/ND, Ax4 bowel sounds, (-) CVA tenderness Musculoskeletal: 4/5 B/L UE strength, 4/5 B/L LE strength. No gait disturbance Skin: (-) rashes , (-) erythema. Psych: euthymic mood Results & Data Results & Data Vital Signs (Past 12 Hours) Vital Signs Temp Pulse Pulse Resp BP BP Pulse Ox 01/29/23 14:26 37.2 C 106 H 22 157/107 H 92 01/29/23 14:28 105 H 01/29/23 12:31 36.5 C 115 H 18 152/97 H 93 O2 Del Method 01/29/23 14:26 Room Air 01/29/23 14:28 01/29/23 12:31 Room Air Laboratory Results Short CBC 01/29/23 Range/Units 13:16 WBC 13.12 H (4.8-10.8) K/ul Hgb 15.2 (12.0-16.0) g/dl Hct 44.0 (37.0-47.0) % Plt Count 300 (130-400) K/uL BMP 01/29/23 13:16 Sodium 135 L Potassium 4.1 Chloride 100 Carbon Dioxide 25 BUN 25 H Creatinine 0.85 Glucose 114 H Calcium 10.8 H Cardiac Enzymes 01/29/23 Range/Units 15:02 Total Creatine Kinase 2389 H (26-192) U/L Liver Function 01/29/23 Range/Units 13:16 Total Bilirubin 0.8 (0.2-1.0) mg/dl AST 99 H (13-39) U/L ALT 52 (7-52) U/L Alkaline Phosphatase 131 H (34-104) U/L Albumin 4.3 (3.4-5.0) gm/dl Urine 01/29/23 Range/Units Unknown Urine Color Yellow Urine Appearance Clear (Clear) Urine pH 6.0 (4.5-7.5) Ur Specific [place] 1.026 (1.000-1.030) Urine Protein Trace H (Negative) Urine Glucose (UA) Negative (Negative) Diagnostic Findings Chest X-Ray 01/29/23 14:34 XR chest 1V portable HISTORY: 67 years-old Female Confusion, SOB, AMS acutely altered mental status COMPARISON: None TECHNIQUE: AP view of the chest FINDINGS: Cardiomediastinal and hilar silhouettes are within normal limits. Atherosclerosis of the aorta. No pneumothorax, large pleural effusion, or overt pulmonary edema or lobar airspace consolidation. Bones appear grossly intact. IMPRESSION: No acute process. ACT 112: Negative or not required by law. The above report was generated using voice recognition software. It may contain grammatical, syntax or spelling errors. Electronically signed by: Kris Morel M.D. 01/29/2023 2:56 PM Abdomen/Pelvis CT 01/29/23 15:23 CT abd pelvis IV con only CLINICAL HISTORY: left flank pain, septic TECHNIQUE: Helical axial images of the abdomen and pelvis were obtained and displayed. Automated dose lowering techniques and/or adjustment according to patient size were utilized for this exam. This exam was performed with intravenous contrast. COMPARISON: None available at the time of this dictation. FINDINGS: Lower chest: Bibasilar atelectasis versus scarring is seen. Liver: Unremarkable. No focal lesions are seen. Gallbladder and biliary tree: No calcified gallstones. Normal caliber wall. No intra- or extrahepatic biliary ductal dilation. Pancreas: Unremarkable, no focal lesions. Spleen: Unremarkable. Adrenals: Unremarkable. Kidneys and ureters: Unremarkable. Bladder: Unremarkable. Reproductive organs: Unremarkable. Bowel: Diverticulosis is seen without evidence of diverticulitis. The appendix is normal. Lymph nodes Retroperitoneal: Unremarkable. Pelvic: Unremarkable. Mesenteric: Unremarkable. Peritoneum: Normal. Vessels: Atherosclerotic calcifications are seen. Abdominal wall: A fat-containing umbilical hernia is seen. Bones: Degenerative changes in the visualized spine. IMPRESSION: No acute abnormalities and in particular no evidence of left obstructive stone or diverticulitis. Diverticulosis is seen. ACT 112: Negative or not required by law. Electronically signed by: Carlos Pederson M.D. 01/29/2023 4:11 PM Chest CTA 01/29/23 15:23 CT angio chest PE protocol CT DOSE: 1572.67 mGy.cm HISTORY: 67 years-old Female with PE. Acute shortness of breath TECHNIQUE: Multiple CTA images of the chest were obtained after the intravenous administration of 117 ml Optiray. Coronal and sagittal MIPS were obtained from the axial data set and were submitted for review. All measurements were obtained according to NASCET criteria. A dose lowering technique was utilized adhering to the principles of ALARA. COMPARISON: CT abdomen and pelvis of same day FINDINGS: CTA: Mild cardiomegaly with moderate coronary artery calcifications. Atherosclerosis of the thoracic aorta without aneurysm or dissection. Segmental and subsegmental pulmonary emboli are noted within a bibasilar predominant distribution however are noted within all lobes bilaterally. Respiratory motion artifact limits the study. Mild straightening of the intraventricular septum. CT CHEST: Multinodular thyroid. No lymphadenopathy. Emphysema with bronchitis. No pneumothorax, pleural effusion or overt pulmonary edema. Subsegmental bibasilar atelectasis. No suspicious pulmonary nodules or masses. Central airways are patent. No acute process of the imaged upper abdomen. Unremarkable soft tissues. No acute fracture. IMPRESSION: 1. Limited exam secondary to respiratory motion artifact. 2. Bilateral segmental and subsegmental pulmonary emboli with findings suspicious for associated right heart strain. 3. No pleural effusion or airspace consolidation. 4. Emphysema with bronchitis. ACT 112: Negative or not required by law. The above report was generated using voice recognition software. It may contain grammatical, syntax or spelling errors. Electronically signed by: Kris Morel M.D. 01/29/2023 4:[address] 01/29/23 15:[address] DOSE: HISTORY: Confusion TECHNIQUE: Multiaxial CT images of the head were performed without the use of intravenous contrast. Automated exposure control was utilized for this study. A dose lowering technique was utilized adhering to the principles of ALARA. Comparison: None. Findings: The paranasal sinuses and mastoid air cells are clear. The calvarium and skull base are intact. There is no mass, hematoma, midline shift, acute infarct. White matter hypodensity is nonspecific but suggestive of microvascular ischemic change. The ventricles and sulci demonstrate mild age-related involutional changes. Impression: No acute intracranial abnormality. Atrophy and microvascular ischemic changes. ACT 112: Negative or not required by law. Electronically signed by: Devaughn Ritchie M.D. 01/29/2023 4:09 PM Code Status & VTE Plan Code Status Full code in the event of cardiac or respiratory arrest VTE Prophylaxis Plan VTE Prophylaxis will be ordered: Yes Supervising Physician Co-Signing Physician Notes Pt seen and examined by myself, Deb Grimaldo MD on the day of service. Care was coordinated with ROSALBA Flowers. Please refer to her note for additional information. 67yoF with PMhx significant for HTN and anxiety admitted with covid and PEs causing heart strain. Resting comfortably, NC in nares, states she does not want any more bad news. Blowing murmur appreciated on exam. No significant edema. Heparin drip, doppler US, echo, cardiology consult- appreciate recs. Pulmonology consult-appreciate recs. Covid positive- hemodynamically stable, will hold off on remdesivir or steroids at this time. WBC elevated- Urine Cx and Blood cultures pending, stool cultures pending. C ontinue empiric Vanc and Cefepime. Otherwise as above.
[2023-01-29] MEDS ORDERED: MAGNESIUM HYDROXIDE SUSP 30 ML UDC PO PRN (17:11)
[2023-01-29] MEDS ORDERED: ALUMINUM/MAGNESIUM SUSP 30 ML UDC PO PRN (17:11)
[2023-01-29] MEDS ORDERED: ONDANSETRON INJ 2 MG/ML 2 ML VIAL IV PRN (17:11)
[2023-01-29] MEDS ORDERED: POLYETHYLENE (MIRALAX) 17 GM PACK PO PRN (17:11)
[2023-01-29] MEDS ORDERED: HEPARIN SOD (PORCINE) 1000 UNIT/ML IV ONE ×3 (17:12→17:45)
[2023-01-29 17:31] LABS: Adenovirus PCR Not Detected (NotDetected); Bordetella parapertussis PCR Not Detected (NotDetected); Bordetella pertussis PCR Not Detected (NotDetected); Chlamydia pneumoniae PCR Not Detected (NotDetected); Coronavirus 229E PCR Not Detected (NotDetected); Coronavirus HKU1 PCR Not Detected (NotDetected); Coronavirus NL63 PCR Not Detected (NotDetected); Coronavirus OC43PCR Not Detected (NotDetected); Human Metapneumovirus PCR Not Detected (NotDetected); Influenza A PCR Not Detected (NotDetected); Influenza B PCR Not Detected (NotDetected); Mycoplasma pneumoniae PCR Not Detected (NotDetected); Parainfluenza Virus 1 PCR Not Detected (NotDetected); Parainfluenza Virus 2 PCR Not Detected (NotDetected); Parainfluenza Virus 3 PCR Not Detected (NotDetected); Parainfluenza Virus 4 PCR Not Detected (NotDetected); Respiratory Syncytial VirusPCR Not Detected (NotDetected); Rhinovirus/Enterovirus PCR Not Detected (NotDetected)
[2023-01-29] MEDS: HEPARIN SODIUM/DEXTROSE 25,000 UNITS/500 ML BAG IV SCH (17:45)
[2023-01-29] MEDS ORDERED: LORazepam 2 MG/1 ML VIAL IV PRN (17:50)
[2023-01-29 17:57] LABS: Coronavirus CoV-2 (COVID19)PCR DETECTED (NotDetected)
[2023-01-29] MEDS ORDERED: GABAPENTIN 600 MG TAB PO ONE (18:47)
[2023-01-29] MEDS ORDERED: GABAPENTIN 1200MG ALCOHOL WITHDRAWAL LOAD PO STA (18:47)
[2023-01-29] MEDS: Heparin IV Adult Wt-Based Standard WITH Bolus Protocol IV SCH ×2 (18:55→18:57)
--- NOTE | 2023-01-29 20:09 | Pharmacy Report ---
Pharmacy PK ABX Note - Date of Service January 29, 2023 - Assessment and Plan Assessment 67 year old F receiving vancomycin/cefepime for treatment of pulmonary indication. Pertinent microbiologic data includes: blood cultures and urine cultures currently pending. A MRSA nasal swab was ordered Day # 06/23 of antimicrobial therapy. Plan Vancomycin * Loading dose: 1250 mg IV x 1 * Maintenance dose: 750 mg IV every 12 hours * Regimen is predicted to achieve target AUC/HAROON of 400-600 mg/L.hr * Trough to be ordered if continued > 48 hours Pharmacy will continue to follow and will adjust dose/frequency as necessary. Thank you. Pharmacy has transitioned to AUC monitoring for vancomycin. AUC/HAROON is the preferred PK/PD target and is associated with decreased risk of nephrotoxicity compared to traditional trough targets.
[2023-01-29] MEDS: THIAMINE HCL 100 MG in SYRINGE 9 ML IV SCH (20:37)
[2023-01-29] MEDS: FOLIC ACID 1 MG in SYRINGE 9.8 ML IV SCH (20:37)
[2023-01-29] MEDS: PANTOprazole 40 MG in SYRINGE 0 ML IV SCH (20:37)
[2023-01-29] MEDS: CEFEPIME 2,000 MG in SYRINGE 0 ML IV SCH (20:38)
[2023-01-30 01:26] LABS: Partial Thromboplastin Ratio 1.8
[2023-01-30 01:29] LABS: Partial Thromboplastin Time 50.8 Seconds (21.0-31.0)
[2023-01-30] MEDS: GABAPENTIN 600 MG TAB PO SCH ×3 (03:20→17:33)
[2023-01-30] MEDS ORDERED: VANCOMYCIN HCL 750 MG in SODIUM CHLORIDE 0.9% 250 ML IV SCH (04:00)
[2023-01-30] MEDS: CEFEPIME 2,000 MG in SYRINGE 0 ML IV SCH ×3 (05:58→21:13)
--- NOTE | 2023-01-30 07:36 | Ultrasound Report ---
BILATERAL LOWER EXTREMITY VENOUS DOPPLER HISTORY: Bilateral lower extremity pain and swelling. COMPARISON STUDY: None. FINDINGS: There is normal compressibility, flow, and augmentation within the bilateral lower extremit y deep venous systems. IMPRESSION: No DVT within the right or left lower extremity. ACT 112: Negative or not required by law. Electronically signed by: Devaughn Ritchie M.D. 01/30/2023 7:35 AM
[2023-01-30] MEDS: amLODIPine BESYLATE 5 MG TAB PO SCH (08:06)
[2023-01-30] MEDS: ENALAPRIL MALEATE 10 MG TAB PO SCH (08:06)
[2023-01-30 08:23] LABS: Albumin Globulin Ratio 1.1 (0.9-2); Albumin Level 3.2 gm/dl (3.4-5.0); Bilirubin,Total 0.7 mg/dl (0.2-1.0); Calcium 9.2 mg/dl (8.6-10.3); Est GFR (African American) 116.1 ml/min; Est GFR (Non-African American) 100.2 ml/min; Magnesium 1.9 mg/dl (1.7-2.4); Phosphorus 2.8 mg/dl (2.5-4.9); Potassium 3.7 mmol/L (3.5-5.1); Total Protein 6.2 gm/dl (6.0-8.3)
[2023-01-30 09:05] LABS: Hemoglobin 12.7 g/dl (12.0-16.0); Mean Corpuscular Hemoglobin 30.3 pg (25.0-34.0); Mean Corpuscular Hgb Conc 32.6 g/dL (32.0-36.0); Mean Corpuscular Volume 93.1 fL (80.0-100.0); Mean Platelet Volume 11.2 fL (9.4-12.4); Platelet Count 209 K/uL (130-400); RDW Coefficient of Variation 14.2 % (11.5-14.5); RDW Standard Deviation 48.1 fL (36.4-46.3); Red Blood Count 4.19 M/uL (4.20-5.40); White Blood Count 8.11 K/ul (4.8-10.8)
[2023-01-30 09:15] LABS: Amphetamines+Metham, Urine Neg (Neg); Barbiturates, Urine Neg (Neg); Benzodiazepine, Urine Pos (Neg); Cocaine, Urine Neg (Neg); MDMA (Ecstacy), Urine Neg (Neg); Methadone, Urine Neg (Neg); Opiate, Urine Neg (Neg); Phencyclidine, Urine Neg (Neg)
[2023-01-30] MEDS: THIAMINE HCL 100 MG in SYRINGE 9 ML IV SCH (09:34)
[2023-01-30] MEDS: FOLIC ACID 1 MG in SYRINGE 9.8 ML IV SCH (09:34)
[2023-01-30] MEDS: PANTOprazole 40 MG in SYRINGE 0 ML IV SCH (09:34)
--- NOTE | 2023-01-30 09:36 | Cardiology Consultation ---
Date of Consultation January 30, 2023 Assessment & Plan (1) Bilateral pulmonary embolism: (2) Elevated troponin: (3) COVID-19: Plan See attending planning lead's documentation for recommendations and plan of care. Supervising Physician Co-Signing Physician Notes Attending Staff: Pt seen and evaluated with [facility] staff. Concur with observations and plans 67 yo woman presenting with dyspnea and generalized + nonspecific "not feeling well" Noted to have subsegmental PEs COVID + ECHOcardiogram: 01/30/2023 LVEF 70% Ventricle is hyperdynamic + LVH RV size and function are normal PE: No elevation in JVP No LE edema Warm and perfusing Plans: + PE Troponin elevated No RV strain on ECHO Heparin for systemic anticoagulation/treatment of PE May consider transition to DOAC for ongoing PE treatment (PE dosing) No new WMA As patient recovers from COVID, may consider Pharmacologic Stress Test as an outpt K+ goal 4.5-5 Mag++ goal >2 Pt has multiple ASCVD risks Consider ASCVD prevention SBP @ goal Lipid check as an outpt Please call back with any additional questions or challenges Bowen Rivas History of Present Illness Reason for Consultation: Elevated troponin; Possible Right heart strain from PE Requesting Physician: Ms. Blake EDGE Attending Physician: Dr. Rivas History of Present Illness Patient is a 67 year old female admitted for generalized weakness, SOB, and "just not feeling well". Patient is a relatively poor historian. She denies cardiac history or prior evaluation. History includes: 1. Hypertension 2. Alcohol abuse 3. Depression/anxiety Patient admitted after several days of just not feeling well. She has difficulty describing her symptoms. Reports cough and SOB. No fever or chills. No sick contacts. She reports she is mostly alone and 'keeps to herself'. On admission she was found to be COVID +; elevated troponin and CPK. EKG demonstrating NSR with voltage criteria for LVH no acute changes Chest Ct + for acute b/L PE. Started on IV heparin. No recent surgeries. SHe admits to being very sedentary at home. started on antibiotics for bronchitis. At time of consult, patient resting in bed comfortably. Notes generalized weakness, ongoing cough. Remains on oxygen. Denies chest pain. No palpitations. No dizziness. No orthopnea, PND or edema. Allergies Allergy/AdvReac Type Severity Reaction Status Date / Time No Known Allergies Allergy Unverified 01/29/23 16:59 Home Medications Medication Instructions Recorded Confirmed Type acetaminophen 325 mg tablet 325 mg PO DAILY PRN Pain 01/29/23 01/29/23 History (Tylenol) alprazolam 1 mg tablet 1 mg PO TID 01/29/23 01/29/23 History amlodipine 5 mg-benazepril 10 mg 1 cap PO DAILY 01/29/23 01/29/23 History capsule apixaban 5 mg tablet (Eliquis) 5 mg PO UD #74 tabs 01/30/23 Rx Patient History Medical History (Updated 01/30/23 @ 13:53 by Silvestre Cuenca PA-C) Alcohol abuse Bilateral pulmonary embolism Hypertension Social History Smoking Status: Current some day smoker Tobacco Type: Cigarettes Second Hand Exposure: No; Do You Dip or Chew Tobacco: No; Tobacco Cessation Education Requested by Patient: No Hx Alcohol Use: Yes Alcohol type: beer Hx Substance Use: No Preferred Language: Malian Communication Ability: Impaired Customer Experience Intern Required: No Beliefs That Will Affect Care: None Current Living Situation: Spouse Other Information That Helps Us Care for You: No Feels Safe at Home: Yes Safety Concerns: Feels Safe At This Time Assistive Devices: None Review of Systems Review of Systems: All systems reviewed & are unremarkable except as noted in HPI & below Physical Exam Constitutional: WD/WN, vitals as above no acute distress Neck: trachea midline, no thyromegaly Respiratory: no respiratory distress Auscultation: + diminished lung sounds and + rhonchi Cardiovascular: Rate/Rhythm: regular rate and regular rhythm Heart Sounds: + murmur (II/ systolic murmur LSB) Vessels: no JVD Extremities: no edema Gastrointestinal (Abdomen): normal bowel sounds, soft, nontender, no hepatosplenomegaly Skin: no rashes, warm and dry Neurologic: PERRL, EOMI, accommodation nl, no face palsy, no dysarthria Results & Data Vital Signs (Past 12 Hours) Vital Signs Temp Pulse Pulse Resp BP Pulse Ox O2 Del Method 01/30/23 08:00 36.7 C 78 18 150/78 H 94 Nasal Cannula 01/30/23 00:00 97 H 01/29/23 22:54 96 H 01/30/23 03:04 36.8 C 74 18 136/67 95 Room Air 01/29/23 23:17 36.9 C 91 H 18 116/70 96 Nasal Cannula 01/29/23 22:19 Nasal Cannula O2 Flow Rate 01/30/23 08:00 2 01/30/23 00:00 01/29/23 22:54 01/30/23 03:04 01/29/23 23:17 2 01/29/23 22:19 2 Laboratory Results Cardiac Enzymes 01/29/23 01/29/23 01/29/23 Range/Units 13:16 15:02 17:47 AST 99 H (13-39) U/L Troponin I High Sens 336.1 H* 337.3 H* (0-14) pg/ml B-Natriuretic Peptide 321 H (0-100) pg/ml 01/30/23 Range/Units 06:57 AST 65 H (13-39) U/L Troponin I High Sens (0-14) pg/ml B-Natriuretic Peptide (0-100) pg/ml Coagulation 01/29/23 01/30/23 Range/Units 17:47 00:09 APTT 50.8 H* (21.0-31.0) Seconds B-Natriuretic Peptide 321 H (0-100) pg/ml CBC 01/29/23 01/30/23 01/30/23 Range/Units 13:16 06:57 08:15 WBC 13.12 H Cancelled 8.11 (4.8-10.8) K/ul RBC 5.02 Cancelled 4.19 L (4.20-5.40) M/uL Hgb 15.2 Cancelled 12.7 (12.0-16.0) g/dl Hct 44.0 Cancelled 39.0 (37.0-47.0) % Plt Count 300 Cancelled 209 (130-400) K/uL Neut # (Auto) 11.20 H (1.40-6.50) K/uL Lymph # (Auto) 0.83 L (1.2-3.4) K/uL Guthrie # (Auto) 0.99 H (0.11-0.59) K/uL Eos # (Auto) 0.00 (0-0.50) K/uL Baso # (Auto) 0.04 (0-0.2) K/uL Comprehensive Metabolic Panel 01/29/23 01/30/23 Range/Units 13:16 06:57 Sodium 135 L 136 (136-145) mmol/L Potassium 4.1 3.7 (3.5-5.1) mmol/L Chloride 100 108 H (98-107) mmol/L Carbon Dioxide 25 25 (21-32) mmol/L BUN 25 H 13 (6-23) mg/dl Creatinine 0.85 0.50 L D (0.6-1.2) mg/dl Glucose 114 H 90 (70-99(Fasting)) mg/dl Calcium 10.8 H 9.2 (8.6-10.3) mg/dl AST 99 H 65 H (13-39) U/L ALT 52 39 (7-52) U/L Alkaline Phosphatase 131 H 82 (34-104) U/L Total Protein 8.5 H 6.2 D (6.0-8.3) gm/dl Albumin 4.3 3.2 L (3.4-5.0) gm/dl Intake and Output 01/29/23 01/30/23 01/30/23 22:59 06:59 14:59 Intake Total 1999 688 / 2688 Balance 1999 688 / 2688 [place]: [place] [address] 438 / 2438 Heparin Sodium/Dextrose 25,000 173 / 173 units In 500 ml @ 1,000 UNITS/ HR 20 mls/hr IV .Q24H [facility] Rx#: [id number] Sodium Chloride 0.9% 1000ML 2, 2000 / 1999 000 ml @ 999 mls/hr IV .Q2H1M ONE Rx#:[id number] Vancomycin HCl 750 mg In Sodium 265 / 265 Chloride 0.9% 250 ml @ 200 mls /hr IV Q12H [facility] Rx#:[id number] Oral 250 / 250 Other: # Unmeasured Voids 1 Weight 58.9 kg 61.2 kg Weight Measurement Method Built in [facility] Built in [facility] Diagnostic Findings Telemetry reviewed: NSR and sinus tach with HR's ranging 80-110 bmp. She had one episode of non sustained atrial tach yesterday lasting approx 20 beats. EKG: Sinus tachycardia Minimal voltage criteria for LVH, may be normal variant Borderline ECG No previous ECGs available Echo report reviewed dated January 30, 2023: RV is normal in size and function PA systolic pressure is 39 mmHg (mildly elevated) Mild concentric LVH No wall motion abnormalities LV is hyperdynamic. EF > 70% Mild MR Grade I diastolic dysfunction No prior studies for comparison Chest X-Ray 01/29/23 14:34 XR chest 1V portable HISTORY: 67 years-old Female Confusion, SOB, AMS acutely altered mental status COMPARISON: None TECHNIQUE: AP view of the chest FINDINGS: Cardiomediastinal and hilar silhouettes are within normal limits. Atherosclerosis of the aorta. No pneumothorax, large pleural effusion, or overt pulmonary edema or lobar airspace consolidation. Bones appear grossly intact. IMPRESSION: No acute process. ACT 112: Negative or not required by law. The above report was generated using voice recognition software. It may contain grammatical, syntax or spelling errors. Electronically signed by: Kris Morel M.D. 01/29/2023 2:56 PM Abdomen/Pelvis CT 01/29/23 15:23 CT abd pelvis IV con only CLINICAL HISTORY: left flank pain, septic TECHNIQUE: Helical axial images of the abdomen and pelvis were obtained and displayed. Automated dose lowering techniques and/or adjustment according to patient size were utilized for this exam. This exam was performed with intravenous contrast. COMPARISON: None available at the time of this dictation. FINDINGS: Lower chest: Bibasilar atelectasis versus scarring is seen. Liver: Unremarkable. No focal lesions are seen. Gallbladder and biliary tree: No calcified gallstones. Normal caliber wall. No intra- or extrahepatic biliary ductal dilation. Pancreas: Unremarkable, no focal lesions. Spleen: Unremarkable. Adrenals: Unremarkable. Kidneys and ureters: Unremarkable. Bladder: Unremarkable. Reproductive organs: Unremarkable. Bowel: Diverticulosis is seen without evidence of diverticulitis. The appendix is normal. Lymph nodes Retroperitoneal: Unremarkable. Pelvic: Unremarkable. Mesenteric: Unremarkable. Peritoneum: Normal. Vessels: Atherosclerotic calcifications are seen. Abdominal wall: A fat-containing umbilical hernia is seen. Bones: Degenerative changes in the visualized spine. IMPRESSION: No acute abnormalities and in particular no evidence of left obstructive stone or diverticulitis. Diverticulosis is seen. ACT 112: Negative or not required by law. Electronically signed by: Carlos Pederson M.D. 01/29/2023 4:11 PM Chest CTA 01/29/23 15:23 CT angio chest PE protocol CT DOSE: 1572.67 mGy.cm HISTORY: 67 years-old Female with PE. Acute shortness of breath TECHNIQUE: Multiple CTA images of the chest were obtained after the intravenous administration of 117 ml Optiray. Coronal and sagittal MIPS were obtained from the axial data set and were submitted for review. All measurements were obtained according to NASCET criteria. A dose lowering technique was utilized adhering to the principles of ALARA. COMPARISON: CT abdomen and pelvis of same day FINDINGS: CTA: Mild cardiomegaly with moderate coronary artery calcifications. Atherosclerosis of the thoracic aorta without aneurysm or dissection. Segmental and subsegmental pulmonary emboli are noted within a bibasilar predominant distribution however are noted within all lobes bilaterally. Respiratory motion artifact limits the study. Mild straightening of the intraventricular septum. CT CHEST: Multinodular thyroid. No lymphadenopathy. Emphysema with bronchitis. No pneumothorax, pleural effusion or overt pulmonary edema. Subsegmental bibasilar atelectasis. No suspicious pulmonary nodules or masses. Central airways are patent. No acute process of the imaged upper abdomen. Unremarkable soft tissues. No acute fracture. IMPRESSION: 1. Limited exam secondary to respiratory motion artifact. 2. Bilateral segmental and subsegmental pulmonary emboli with findings suspicious for associated right heart strain. 3. No pleural effusion or airspace consolidation. 4. Emphysema with bronchitis. ACT 112: Negative or not required by law. The above report was generated using voice recognition software. It may contain grammatical, syntax or spelling errors. Electronically signed by: Kris Morel M.D. 01/29/2023 4:[address] 01/29/23 15:[address] DOSE: HISTORY: Confusion TECHNIQUE: Multiaxial CT images of the head were performed without the use of intravenous contrast. Automated exposure control was utilized for this study. A dose lowering technique was utilized adhering to the principles of ALARA. Comparison: None. Findings: The paranasal sinuses and mastoid air cells are clear. The calvarium and skull base are intact. There is no mass, hematoma, midline shift, acute infarct. White matter hypodensity is nonspecific but suggestive of microvascular ischemic change. The ventricles and sulci demonstrate mild age-related involutional changes. Impression: No acute intracranial abnormality. Atrophy and microvascular ischemic changes. ACT 112: Negative or not required by law. Electronically signed by: Devaughn Ritchie M.D. 01/29/2023 4:09 PM Venous Doppler Study 01/29/23 18:49 BILATERAL LOWER EXTREMITY VENOUS DOPPLER HISTORY: Bilateral lower extremity pain and swelling. COMPARISON STUDY: None. FINDINGS: There is normal compressibility, flow, and augmentation within the bilateral lower extremity deep venous systems. IMPRESSION: No DVT within the right or left lower extremity. ACT 112: Negative or not required by law. Electronically signed by: Devaughn Ritchie M.D. 01/30/2023 7:35 AM Medications Administered Current Inpatient Medications Acetaminophen (Acetaminophen 325 Mg Tab) 650 mg PO Q4H PRN PRN Reason: Pain or Fever Stop: 02/28/23 17:10 Al Hydrox/Mg Hydrox/Simethicone (Aluminum/Magnesium Susp 30 Ml Udc) 15 ml PO Q4H PRN PRN Reason: Dyspepsia Stop: 02/28/23 17:10 Amlodipine Besylate (Amlodipine Besylate 5 Mg Tab) 5 mg PO DAILY [facility] Stop: 03/01/23 08:59 Last Admin: 01/30/23 08:06 Dose: 5 mg Enalapril Maleate (Enalapril Maleate 10 Mg Tab) 10 mg PO DAILY [facility] Stop: 03/01/23 08:59 Last Admin: 01/30/23 08:06 Dose: 10 mg Gabapentin (Gabapentin 600 Mg Tab) 600 mg PO Q24H [facility] Stop: 02/02/23 10:01 Gabapentin (Gabapentin 600 Mg Tab) 600 mg PO Q12H [facility] Stop: 02/01/23 10:01 Gabapentin (Gabapentin 600 Mg Tab) 600 mg PO Q8H [facility] Stop: 01/31/23 10:01 Gabapentin (Gabapentin 600 Mg Tab) 600 mg PO Q6H [facility] Stop: 01/30/23 10:01 Last Admin: 01/30/23 03:20 Dose: 600 mg Heparin Sodium/Dextrose (Heparin Sodium/Dextrose) 25,000 units in 500 mls @ 20 mls/hr IV .Q24H [facility]; Protocol Stop: 02/28/23 17:14 Last Titration: 01/30/23 02:24 Dose: 1,000 units/hr, 20 mls/hr Thiamine HCl 100 mg/ Syringe 10 mls @ 2 mls/min IV QAM DINO Stop: 02/28/23 18:59 Last Admin: 01/30/23 09:34 Dose: 2 mls/min Folic Acid 1 mg/ Syringe 10 mls @ 5 mls/min IV QAM DINO Stop: 02/28/23 18:59 Last Admin: 01/30/23 09:34 Dose: 5 mls/min Pantoprazole Sodium 40 mg/ (Syringe) 10 mls @ 5 mls/min IV BID DINO Stop: 02/28/23 20:59 Last Admin: 01/30/23 09:34 Dose: 5 mls/min Cefepime HCl 2,000 mg/ Syringe 20 mls @ 5 mls/min IV Q8H [facility]INO; Protocol Stop: 02/05/23 21:59 Last Admin: 01/30/23 05:58 Dose: 5 mls/min Lorazepam (Lorazepam 2 Mg/1 Ml Vial) 1 mg IV ONE PRN; Protocol PRN Reason: EtoH Withdrawal AWSS 6,7,8,9,10 Magnesium Hydroxide (Magnesium Hydroxide Susp 30 Ml Udc) 30 ml PO Q12H PRN PRN Reason: Constipation Stop: 02/28/23 17:10 Ondansetron HCl (Ondansetron Inj 2 Mg/Ml 2 Ml Vial) 4 mg IV Q6H PRN PRN Reason: Nausea Stop: 02/28/23 17:10 Polyethylene Glycol (Polyethylene (Miralax) 17 Gm Pack) 17 gm PO DAILY PRN PRN Reason: Constipation Stop: 02/28/23 17:10
--- NOTE | 2023-01-30 09:53 | Pulmonary Consultation ---
Date of Consultation January 30, 2023 Assessment & Plan (1) Bilateral pulmonary embolism: (2) COVID-19: (3) Tobacco abuse: (4) Alcohol abuse: Plan IMPRESSION: 67-year-old female with significant past medical history of hypertension, tobacco abuse, and alcohol abuse who presents with findings of bilateral pulmonary emboli in the setting of active COVID-19 infection. RECOMMENDATIONS: 1. Bilateral pulmonary emboli - Initially with elevated troponin and slight elevation in BNP. CT without concerning findings of heart strain. Echocardiogram with mild elevation in TAPSE at 35 mmHg. Otherwise, no signs of RIGHT-sided heart strain noted. Patient can be transitioned to oral DOAC with plans to discharge soon. As this is considered provoked in the setting of COVID-19 infection, the patient will warrant anticoagulation therapy for the next 3 to 6 months. Would recommend follow-up echocardiogram to evaluate PASP change after course of anticoagulation. No follow-up CT of the chest necessary. This can be managed by her primary care provider. 2. COVID-19 infection - Patient with cough likely stemming from sequela of viral prodrome. We will add Mucinex. Titrate down oxygen as tolerated. I do not appreciate wheezing on exam findings. Uncertain if utility of steroids at this time. 3. Tobacco abuse - Patient with 20+ pack-year smoking history who quit 3 to 4 years ago. Patient previously had been diagnosed with COPD, however we do not have active records of pulmonary function testing otherwise. Patient likely warrants formal pulmonary function testing in the outpatient setting to confirm this, particularly with extensive smoking history. She is relatively asymptomatic from a pulmonary perspective outside of current admission. Would defer evaluation to her outside provider. Additionally, the patient qualifies for yearly low-dose CT lung cancer screening given her age and smoking history. 4. Alcohol abuse - Encouraged cessation. For withdrawal symptoms in the interim. Patient likely to be discharged in the next 24 to 48 hours otherwise. Thank you for allowing us to participate in the care of this pleasant patient. Pulmonary medicine will sign off at this time. Supervising Physician Co-Signing Physician Notes Patient seen and examined. EMR reviewed. Discussed with critical care SANA and agree with assessment plan as noted. PE in the setting of COVID. Recommend 3 months of anticoagulation. Okay to transition off heparin to direct thrombin inhibitors or Coumadin. If Coumadin is selected the patient will need 5 days of heparin and greater than 24 hours overlap with an INR greater than 2. Would recommend follow-up echocardiogram in 3 months. Suspect the patient can be weaned off of supplemental oxygen. If not, short-term oxygen and outpatient follow-up in 1 to 2 weeks with her primary care provider would be reasonable as I suspect her oxygen requirement will likely resolve. Pulmonary will sign off at this point time. Feel free to contact us with questions or concerns History of Present Illness Reason for Consultation: PE with R heart strain/Covid + Requesting Physician: ROSALBA Medina Attending Physician: Hermelinda Rowley MD History of Present Illness Patient is a 67-year-old female with a significant past medical history of hypertension, anxiety, depression who presented to the emergency department on 01/29 with complaints of generalized fatigue and malaise and body aches. During evaluation, the patient was noted to have an elevated troponin value as well as some oxygen requirement. CTA was obtained which demonstrated bilateral pulmonary emboli. Patient was started on heparin and admitted for further evaluation and management. During the extent of the work-up, the patient tested positive for COVID-19. Pulmonary medicine was consulted for positive pulmonary embolism findings and elevated troponin with concerns for right heart strain. During evaluation in room 214, the patient is awake, alert, and oriented. She reports that she smoked for greater than 20 years at approximately a pack a day. She has previously been evaluated for lung cancer at some point and states that she quit smoking 3 to 4 years ago after that scare. She carries a diagnosis of COPD that was made during hospitalization she describes, but has not been formally worked up including no prior pulmonary function testing. Today, the patient offers no complaints. She is saturating well on 2 L nasal cannula. She has a more mild nonproductive cough. She reports no chest pain, palpitations, or hemoptysis. She denies any personal history of blood clots or bleeding disorders. No family history of the same. She reports no recent long distance travel. No use of hormonal therapies. No known malignancies. Patient has increased her alcohol consumption recently related to her current poor relationship status. She denies drinking every day, but reports when she does she drinks approximately 8-12 beers per day. She denies complaints of prior withdrawal symptoms, however she is unable to quantify the last time she quit drinking. Allergies Allergy/AdvReac Type Severity Reaction Status Date / Time No Known Allergies Allergy Unverified 01/29/23 16:59 Home Medications Medication Instructions Recorded Confirmed Type acetaminophen 325 mg tablet 325 mg PO DAILY PRN Pain 01/29/23 01/29/23 History (Tylenol) alprazolam 1 mg tablet 1 mg PO TID 01/29/23 01/29/23 History amlodipine 5 mg-benazepril 10 mg 1 cap PO DAILY 01/29/23 01/29/23 History capsule apixaban 5 mg tablet (Eliquis) 5 mg PO UD #74 tabs 01/30/23 Rx Patient History Medical History (Updated 01/30/23 @ 13:53 by Silvestre Cuenca PA-C) Alcohol abuse Bilateral pulmonary embolism Hypertension Social History Smoking Status: Current some day smoker Tobacco Type: Cigarettes Second Hand Exposure: No; Do You Dip or Chew Tobacco: No; Tobacco Cessation Education Requested by Patient: No Hx Alcohol Use: Yes Alcohol type: beer Hx Substance Use: No Preferred Language: Danish Communication Ability: Impaired Data Modeling Specialist Required: No Beliefs That Will Affect Care: None Current Living Situation: Spouse Other Information That Helps Us Care for You: No Feels Safe at Home: Yes Safety Concerns: Feels Safe At This Time Assistive Devices: None Review of Systems Review of Systems: A complete 10 point review of systems was reviewed with the patient with pertinent positives and negatives as per history of present illness. All else were negative. Physical Exam Physical Exam: VITAL SIGNS - Vital signs and nursing notes were reviewed. GENERAL - 67-year-old female appearing her stated age who is in no acute distress. Communicates well with provider and answers questions appropriately. NOSE - Midline and without cyanosis. MOUTH/OROPHARYNX - Without perioral cyanosis. NECK - Neck with FROM. LUNGS - Chest wall evaluation demonstrates normal chest wall A:P diameter. Auscultation reveals slightly diminished breath sounds without wheezes, rales, or rhonchi noted. CARDIAC - RRR with S1/S2. No murmur, rubs, or gallops appreciated. ABDOMEN - Abdominal inspection demonstrates flat. BS normoactive all four quadrants. No tenderness, palpable masses, or ascites noted. EXTREMITIES - Nail clubbing not present. No peripheral cyanosis. No pretibial edema present. +3/5 radial palpated throughout. PSYCH - A&Ox3 and cooperates fully with examiner. Pt is very pleasant and interacts well with examiner. Results & Data Results & Data Vital Signs (Past 12 Hours) Vital Signs Temp Pulse Pulse Resp BP Pulse Ox O2 Del Method 01/30/23 08:00 36.7 C 78 18 150/78 H 94 Nasal Cannula 01/30/23 00:00 97 H 01/29/23 22:54 96 H 01/30/23 03:04 36.8 C 74 18 136/67 95 Room Air 01/29/23 23:17 36.9 C 91 H 18 116/70 96 Nasal Cannula 01/29/23 22:19 Nasal Cannula O2 Flow Rate 01/30/23 08:00 2 01/30/23 00:00 01/29/23 22:54 01/30/23 03:04 01/29/23 23:17 2 01/29/23 22:19 2 PG Care Time/CCT Total # of Minutes Spent Total Time Spent with Patient: Total time spent is greater than 50% in coordination of care (as documented) at patient's floor/unit and/or counseling patient: Coding Level of Care Code 51370 IN/OBS CONSULT LVL 4,60M Diagnoses Bilateral pulmonary embolism I26.99 COVID-19 U07.1 Tobacco abuse Z72.0 Alcohol abuse F10.10
--- NOTE | 2023-01-30 14:08 | Hospitalist Progress Note ---
Date of Service January 30, 2023 Assessment & Plan (1) Bilateral pulmonary embolism: Plan 67 year old female that presents to the ED 01/29 with fatigue and decreased appetite with back pain and lower extremity swelling. Overall, generally poorly cared for individual. She also reported being sad/lack of appetite and lack of sleep for several days to weeks prior to arrival and hence not much moving around. She is being managed for the following: Bilateral pulmonary embolism Troponin elevation/demand ischemia: Secondary to pulmonary embolism. Flat trended in 300s. Admitting CXR with no acute finding; admitting CTA chest with bilateral seg mental and subsegmental PE, concern for right heart strain. US Doppler with no DVT in BLE. MRSA negative Echo done, EF greater than 70%, grade 1 diastolic dysfunction, right ventricle is normal in size and function, pulmonary artery systolic baseline is mildly elevated. Mild concentric LVH. No regional wall motion abnormality Patient's vitals getting better, oxygen need getting better, pulse rate getting better. Continue with heparin GTT, patient interested in Eliquis, sent for cost analysis. Cardiology evaluated, outpatient pharmacological stress test and outpatient lipid profile as patient has multiple ASCVD risk factors. Pulmonology evaluated, follow-up echo after course of anticoagulation for 3 to 6 months. We will discontinue vancomycin. COVID-19 infection/sepsis POA: WBC and heart rate elevated at presentation, likely secondary to viral infection. CRP elevated, Pro-Tray negative. Wean down the oxygen as tolerated, very occasional rhonchi bilaterally on exam, will continue to monitor for any further steroid. Incentive spirometry. Abnormal urinalysis: Patient is started on cefepime on 01/29, will continue. Await urine culture. Hypertension: Takes amlodipine benazepril, continue. Alcohol use disorder: Reports drinking 8-10 beers most days; last drink was 1 day ago prior to arrival. AWSS scale in place; Thiamine and Folic Acid IV for now Anxiety and Depression: Takes alprazolam; continue. Receptive to Behavioral Health Liason; consult placed. We will start Celexa Disposition: PCP:Dr. [place] independent provider CODE STATUS: Full code VTE prophylaxis: On Heparin gtt Admission and Anticipated Discharge Date Admission Date: January 29, 2023 Subjective Patient seen and examined at bedside as a follow-up of bilateral pulmonary embolism, COVID-19 infection and depression. Patient was lying in bed, on 2 L nasal cannula oxygen, reports being able to sleep overnight after many days, also reports improving appetite after many days. Reports feeling better. Has had 1 episode of diarrhea 3 days ago. Reports improving myalgia. Physical Exam Physical Exam: GENERAL: Alert and oriented x3. NAD, on 2L NC O2. Appears sad/ill/frail/weak. HEENT: No pallor, no icterus. Pupils equal, round and reactive to light. Oral mucosa moist. NECK: No JVD, no neck masses. HEART: S1 and S2 heard. Regular rate and rhythm. No murmur, no gallop. RESPIRATORY SYSTEM: Normal AP diameter. No accessory muscle use. No wheezing, occ b/l rhonci, no crackles. ABDOMEN: Soft, bowel sounds present, nontender, no distention. CENTRAL NERVOUS SYSTEM: No facial droop. Speech is clear. Obeys simple commands. Moves extremities. EXTREMITIES: No edema, no erythema seen. Results & Data Results & Data Vital Signs (Past 12 Hours) Vital Signs Temp Pulse Pulse Resp BP Pulse Ox O2 Del Method 01/30/23 11:11 85 01/30/23 10:49 36.7 C 87 18 117/75 92 Nasal Cannula 01/30/23 07:30 Nasal Cannula 01/30/23 08:00 36.7 C 78 18 150/78 H 94 Nasal Cannula 01/30/23 03:04 36.8 C 74 18 136/67 95 Room Air O2 Flow Rate 01/30/23 11:11 01/30/23 10:49 1 01/30/23 07:30 2 01/30/23 08:00 2 01/30/23 03:04
[2023-01-30] MEDS: ACETAMINOPHEN 325 MG TAB PO PRN (15:50)
[2023-01-30] MEDS: HEPARIN SODIUM/DEXTROSE 25,000 UNITS/500 ML BAG IV SCH (17:33)
[2023-01-30] MEDS: guaiFENesin 600 MG TABCR PO SCH (20:08)
[2023-01-30] MEDS: PANTOprazole 40 MG TAB PO SCH (20:08)
[2023-01-31] MEDS: GABAPENTIN 600 MG TAB PO SCH ×3 (02:37→20:59)
[2023-01-31 05:49] LABS: Hematocrit (blood only) 35.1 % (37.0-47.0); Hemoglobin 11.6 g/dl (12.0-16.0); Mean Corpuscular Hemoglobin 30.3 pg (25.0-34.0); Mean Corpuscular Volume 91.6 fL (80.0-100.0); Mean Platelet Volume 10.8 fL (9.4-12.4); Platelet Count 185 K/uL (130-400); RDW Coefficient of Variation 13.8 % (11.5-14.5); RDW Standard Deviation 46.7 fL (36.4-46.3); Red Blood Count 3.83 M/uL (4.20-5.40); White Blood Count 6.61 K/ul (4.8-10.8)
[2023-01-31] MEDS: CEFEPIME 2,000 MG in SYRINGE 0 ML IV SCH ×2 (05:53→14:20)
[2023-01-31 06:12] LABS: Albumin Level 3.1 gm/dl (3.4-5.0); BUN Creatinine Ratio 18.4 (10-20); Bilirubin Direct 0.1 mg/dl (0-0.2); Bilirubin,Total 0.4 mg/dl (0.2-1.0); Calcium 9.6 mg/dl (8.6-10.3); Creatinine Clr Calc Pharmacy 88.1 ml/min; Est GFR (African American) 116.8 ml/min; Est GFR (Non-African American) 100.8 ml/min; Magnesium 1.8 mg/dl (1.7-2.4); Phosphorus 2.6 mg/dl (2.5-4.9); Potassium 3.5 mmol/L (3.5-5.1); Total Protein 6.1 gm/dl (6.0-8.3)
[2023-01-31 06:40] LABS: Partial Thromboplastin Ratio 2.7
[2023-01-31 06:45] LABS: Partial Thromboplastin Time 76.4 Seconds (21.0-31.0)
[2023-01-31] MEDS: amLODIPine BESYLATE 5 MG TAB PO SCH (07:56)
[2023-01-31] MEDS: PANTOprazole 40 MG TAB PO SCH ×2 (07:57→20:58)
[2023-01-31] MEDS: ENALAPRIL MALEATE 10 MG TAB PO SCH (07:57)
[2023-01-31] MEDS: guaiFENesin 600 MG TABCR PO SCH ×2 (07:59→20:58)
[2023-01-31] MEDS: FOLIC ACID 1 MG TAB PO SCH (07:59)
[2023-01-31] MEDS: CITALOPRAM 20 MG TAB PO SCH (07:59)
[2023-01-31] MEDS: THIAMINE HCL 100 MG TAB PO SCH (07:59)
[2023-01-31] MEDS ORDERED: POTASSIUM CHLORIDE CRTAB 20 MEQ TABCR PO STA (08:03)
[2023-01-31 13:52] LABS: Partial Thromboplastin Ratio 1.7
--- NOTE | 2023-01-31 15:58 | Hospitalist Progress Note ---
Date of Service January 31, 2023 Assessment & Plan (1) Bilateral pulmonary embolism: Plan 67 year old female that presents to the ED 01/29 with fatigue and decreased appetite with back pain and lower extremity swelling. Overall, generally poorly cared for individual. She also reported being sad/lack of appetite and lack of sleep for several days to weeks prior to arrival and hence not much moving around. She is being managed for the following: Bilateral pulmonary embolism Troponin elevation/demand ischemia: Secondary to pulmonary embolism. Flat trended in 300s. Admitting CXR with no acute finding; admitting CTA chest with bilateral seg mental and subsegmental PE, concern for right heart strain. US Doppler with no DVT in BLE. MRSA negative Echo done, EF greater than 70%, grade 1 diastolic dysfunction, right ventricle is normal in size and function, pulmonary artery systolic baseline is mildly elevated. Mild concentric LVH. No regional wall motion abnormality Patient's vitals getting better, oxygen need getting better, pulse rate getting better. Continue with heparin GTT, - to stop at 9 pm, eliquis to be started at 10 mg bid x 7 days from 01/31 9 pm, f/b 5 mg bid after 7 days. Cardiology evaluated, outpatient pharmacological stress test and outpatient lipid profile as patient has multiple ASCVD risk factors. Pulmonology evaluated, follow-up echo after course of anticoagulation for 3 to 6 months. We will discontinue vancomycin. COVID-19 infection/sepsis POA: WBC and heart rate elevated at presentation, likely secondary to viral infection. CRP elevated, Pro-Tray negative. Wean down the oxygen as tolerated, no rhonci on exam, will continue to monitor for any need of steroid. Incentive spirometry. Abnormal urinalysis: Patient is started on cefepime on 01/29, will continue. Urine culture came back contaminated. Will discontinue cefepime. Continue to monitor. Hypertension: Takes amlodipine benazepril, continue. Alcohol use disorder: Reports drinking 8-10 beers most days. AWSS scale in place; Thiamine and Folic Acid IV for now. Patient reports her last drink was 1 week ago prior to arrival. Anxiety and Depression: Takes alprazolam; continue. Receptive to Behavioral Health Liason; consult placed. Started Disposition: PCP:Dr. [place] independent provider CODE STATUS: Full code VTE prophylaxis: On Heparin gtt, to be transition to Eliquis 01/31 evening Admission and Anticipated Discharge Date Admission Date: January 29, 2023 Subjective Patient seen and examined at bedside as a follow-up of bilateral pulmonary embolism, COVID-19 infection and depression. Patient was lying in bed, on 1 L nasal cannula oxygen, reports ok sleep overnight, reports improving appetite. Reports feeling better. Has had 1 episode of diarrhea 4 days ago. Reports improving myalgia. Pt ok w/ the cost of eliquis. at 47 dollars a month. Physical Exam Physical Exam: GENERAL: Alert and oriented x3. NAD, on 1L NC O2. Appears sad/ill/frail/weak. HEENT: No pallor, no icterus. Pupils equal, round and reactive to light. Oral mucosa moist. NECK: No JVD, no neck masses. HEART: S1 and S2 heard. Regular rate and rhythm. No murmur, no gallop. RESPIRATORY SYSTEM: Normal AP diameter. No accessory muscle use. No wheezing, occ b/l rhonci, no crackles. ABDOMEN: Soft, bowel sounds present, nontender, no distention. CENTRAL NERVOUS SYSTEM: No facial droop. Speech is clear. Obeys simple commands. Moves extremities. EXTREMITIES: No edema, no erythema seen. Results & Data Results & Data Vital Signs (Past 12 Hours) Vital Signs Temp Pulse Pulse Resp BP Pulse Ox O2 Del Method 01/31/23 08:00 77 01/31/23 07:53 37 C 85 19 149/80 H 91 Room Air 01/31/23 07:43 Room Air, Nasal Cannula O2 Flow Rate 01/31/23 08:00 01/31/23 07:53 01/31/23 07:43 1
[2023-01-31] MEDS: HEPARIN SODIUM/DEXTROSE 25,000 UNITS/500 ML BAG IV SCH (18:30)
[2023-01-31] MEDS: APIXABAN 5 MG TABLET PO SCH (20:58)
[2023-01-31] MEDS: ACETAMINOPHEN 325 MG TAB PO PRN (20:59)
[2023-01-31 22:19] LABS: Adenovirus F 40/41 PCR Not Detected (NotDetected); Astrovirus PCR Not Detected (NotDetected); Campylobacter PCR Not Detected (NotDetected); Cryptosporidium PCR Not Detected (NotDetected); Cyclospora cayetanensis PCR Not Detected (NotDetected); Entamoeba histolytica PCR Not Detected (NotDetected); Enteroaggregative E.coli(EAEC) Not Detected (NotDetected); Enteropathogenic E.coli (EPEC) Not Detected (NotDetected); Enterotoxigenic E.coli (ETEC) Not Detected (NotDetected); Giardia lamblia PCR Not Detected (NotDetected); Norovirus GI/GII PCR Not Detected (NotDetected); Plesiomonas shigelloides PCR Not Detected (NotDetected); Rotavirus A PCR Not Detected (NotDetected); Salmonella PCR Not Detected (NotDetected); Sapovirus PCR Not Detected (NotDetected); Shiga-like Toxin E.coli (STEC) Not Detected (NotDetected); Shigella/Enteroinvasive E.coli Not Detected (NotDetected); Vibrio cholerae PCR Not Detected (NotDetected); Vibrio species PCR Not Detected (NotDetected); Yersinia enterocolitica PCR Not Detected (NotDetected)
[2023-01-31 23:23] LABS: 7-Aminoclonaz, Confirm NEGATIVE ng/mL (<25); Hydro-Alp Ur, GC/MS 188 ng/mL (<25); Hydroxyethylflurazepam, Conf NEGATIVE ng/mL (<50); Hydroxymidazolam Ur, GC/MS NEGATIVE ng/mL (<50); Hydroxytriazolam NEGATIVE ng/mL (<50); Lorazepam, Ur GC/MS NEGATIVE ng/mL (<50); Nordiazepam, Confirm NEGATIVE ng/mL (<50); Oxazepam Ur, GC/MS NEGATIVE ng/mL (<50); Temazepam, Confirm NEGATIVE ng/mL (<50)
[2023-02-01 07:06] LABS: Hematocrit (blood only) 37.2 % (37.0-47.0); Hemoglobin 12.2 g/dl (12.0-16.0); Mean Corpuscular Hemoglobin 30.1 pg (25.0-34.0); Mean Corpuscular Hgb Conc 32.8 g/dL (32.0-36.0); Mean Corpuscular Volume 91.9 fL (80.0-100.0); Mean Platelet Volume 10.8 fL (9.4-12.4); Platelet Count 176 K/uL (130-400); RDW Coefficient of Variation 13.4 % (11.5-14.5); RDW Standard Deviation 45.3 fL (36.4-46.3); Red Blood Count 4.05 M/uL (4.20-5.40); White Blood Count 6.16 K/ul (4.8-10.8)
[2023-02-01 07:17] LABS: Partial Thromboplastin Ratio 1.2; Partial Thromboplastin Time 32.5 Seconds (21.0-31.0)
[2023-02-01] MEDS: guaiFENesin 600 MG TABCR PO SCH (07:51)
[2023-02-01] MEDS: PANTOprazole 40 MG TAB PO SCH (07:52)
[2023-02-01] MEDS: amLODIPine BESYLATE 5 MG TAB PO SCH (07:53)
[2023-02-01] MEDS: THIAMINE HCL 100 MG TAB PO SCH (07:53)
[2023-02-01] MEDS: CITALOPRAM 20 MG TAB PO SCH (07:53)
[2023-02-01] MEDS: ENALAPRIL MALEATE 10 MG TAB PO SCH (07:54)
[2023-02-01] MEDS: APIXABAN 5 MG TABLET PO SCH (07:55)
[2023-02-01] MEDS: FOLIC ACID 1 MG TAB PO SCH (07:55)
[2023-02-01 08:05] LABS: Calcium 10.5 mg/dl (8.6-10.3); Potassium 3.8 mmol/L (3.5-5.1)
[2023-02-01 08:11] LABS: Creatinine Clr Calc Pharmacy 86.4 ml/min; Est GFR (African American) 116.1 ml/min; Est GFR (Non-African American) 100.2 ml/min
[2023-02-01] MEDS: GABAPENTIN 600 MG TAB PO SCH (10:23)
--- NOTE | 2023-02-01 16:10 | Discharge Summary ---
Discharge Summary Date of Service February 01, 2023 Notes For Next Care Provider Please order repeat echocardiogram in 3 months for follow up. Please ensure completion of a total of 3 months of Eliquis therapy as prescribed. Please ensure follow up with cardiology for an outpatient stress test. Medication Changes From Visit Started on Eliquis for PE Admission HPI Per Admitting Provider Ms. Dacosta is a 67 year old female that presents to the ED today with fatigue and decreased appetite with back pain and lower extremity swelling that started over the past three days. She is quite sedentary at home and per her family is in her bedroom a lot isolating herself. She denies any recent illness or cough; however, tested positive for Covid in the ED without hypoxia. Chest CTA positive for bilateral segmental/subsegmental PE with right heart strain; troponin 337.3 which I suspect is related to the right heart strain and PE. Head CT negative for acute intracranial process. Abdominal and pelvis CT reports diverticulosis; otherwise unremarkable. Chest x-ray negative for acute cardiopulmonary disease. Leukocytosis WBC 13.12, lactate 1.4, CRP elevated 12.69, Pro-Tray negative. Trace ketonuria with WBC and UA 10-30. Pt admits to ingesting 8-10 beers most days; her last drink was two days ago. Started on vancomycin plus cefepime in the ED with IV fluids. Patient denies headache, dizziness, visual or auditory changes, nausea, vomiting, diarrhea, abdominal pain or tenderness, urinary or bowel changes, recent falls or trauma. Sitting in her hospital bed she is AAOx4 but slow to respond and not back to baseline. Denies tobacco or recreational drug use. General weakness BL UP 4/5, BL LE 4/5; no edema. Plan to focus on PE treatment with ECHO, Doppler ultrasound, Cardiology consult, Pulmonary consult, empiric abx for treatment of leukocytosis with elevated neutrophils. Overall, generally poorly cares for herself. Patient will be admitted for further evaluation and management. Please see A/P for further details Admission Exam Per Admitting Provider Neuro: AAOx4, PERRLA, no aphagia, memory changes, CNII-XII grossly intact HEENT: head normocephalic, dry mucus membranes CV: S1/S2, (+) LSB Grade IV/ murmur, (-) edema, cap refill < 3 seconds Resp: Lungs expiratory wheezes upper lung heath. On 2LNC GI: Abdomen S/NT/ND, Ax4 bowel sounds, (-) CVA tenderness Musculoskeletal: 4/5 B/L UE strength, 4/5 B/L LE strength. No gait disturbance Skin: (-) rashes , (-) erythema. Psych: euthymic mood Principal Dx & Hospital Course #1 = Principal Diagnosis (1) Bilateral pulmonary embolism: (2) Alcohol abuse: (3) Tobacco abuse: (4) COVID-19: (5) Elevated troponin: Plan 67yoF presenting to the ED on 01/29 with fatigue, decreased appetite with back pa in, lower extremity swelling and found to have bilateral PE in the setting of a covid infection. She also reported being sad/lack of appetite and lack of sleep for several days to weeks prior to arrival and hence not much moving around. She was managed for the following: Bilateral pulmonary embolism Troponin elevation/demand ischemia: Secondary to pulmonary embolism. Troponins elevated in 300s. Admitting CXR with no acute finding; admitting CTA chest with bilateral segmental and subsegmental PE, concern for right heart strain. US Doppler with no DVT in BLE. MRSA negative Echo done, EF greater than 70%, grade 1 diastolic dysfunction, right ventricle is normal in size and function, pulmonary artery systolic baseline is mildly elevated. Mild concentric LVH. No regional wall motion abnormality Remained hemodynamically stable Transitioned from a heparin GTT to Eliquis. Eliquis to be started at 10 mg bid x 7 days from 8 9 pm, then 5 mg bid for a total of 3 months per pulmonology recommendations. Cardiology evaluated the patient. They recommended outpatient pharmacological stress test and outpatient lipid profile as patient has multiple ASCVD risk factors. Pulmonology also evaluated the patient, they recommended follow-up echo after course of anticoagulation for 3 months. No oxygen need for discharge after 2 step evaluation. Due to her weakness, she was discharged home with a walker and home health services for physical and occupational therapy. COVID-19 infection/sepsis POA: WBC and heart rate elevated at presentation. CRP elevated, Pro-Tray negative. Oxygen supplementation as needed. Incentive spirometry. Abnormal urinalysis: Patient was treated with cefepime. Urine culture came back contaminated and cefepime was discontinued at that time. Hypertension: Takes amlodipine benazepril, continue. Alcohol use disorder: Reports drinking 8-10 beers most days. AWSS scale while hospitalized. Thiamine and Folic Acid replacements. Patient reports her last drink was 1 week ago prior to arrival. Resources provided to pt on discharge. Anxiety and Depression: Takes alprazolam; continue. Resources provided to pt on discharge. Discharge Exam General: Alert, oriented. No acute distress Psych: Appropriate mood and affect Neuro: Difficulty moving HEENT: NC/AT CV: RRR, Blowing murmur appreciated Resp: no increased effort of breathing. Abdomen: Soft, nontender, nondistended. Extremities: No edema in lower extremities bilaterally. Updated Medication List Medication Instructions Recorded Confirmed Type acetaminophen 325 mg tablet 325 mg PO DAILY PRN Pain 01/29/23 01/29/23 History (Tylenol) alprazolam 1 mg tablet 1 mg PO TID 01/29/23 01/29/23 History amlodipine 5 mg-benazepril 10 mg 1 cap PO DAILY 01/29/23 01/29/23 History capsule apixaban 5 mg tablet (Eliquis) 5 mg PO UD #74 tabs 01/30/23 Rx citalopram 20 mg tablet 20 mg PO QAM #30 tabs 02/01/23 Rx gabapentin 600 mg tablet 600 mg PO Q24H #30 tabs 02/01/23 Rx guaifenesin 600 mg tablet, 1,200 mg PO Q12 #30 tabs 02/01/23 Rx extended release 12 hr (Mucinex) Hospital Stay Data Consultations 01/29/23 17:07 ED Decision to Admit Stat 01/29/23 17:11 Consult Cardiology Routine 01/29/23 18:53 Consult Pulmonology Routine 01/30/23 14:00 Consult Behavioral Health Liaison Routine Diagnostic Imagining Performed 01/29/23 15:23 CT abd pelvis IV con only Stat CT angio chest PE protocol Stat CT head/brain wo con Stat 01/29/23 18:49 US venous doppler LE BI Routine Discharge Instructions Given to Patient (Per Discharging Provider) You were admitted and you were found to have blood clots in your lungs. We suspect this happened because you had COVID. We started you on a blood thinner medication to help with that. Please take it as prescribed. -Take Eliquis 10mg TWICE a day for 6 more days (twelve more times/doses needed) -Then take Eliquis 5mg twice a day The top inventory control executive recommended that you take your blood thinner for a total of 3 months. Please follow up with your primary care provider for continued prescriptions if needed. They also recommend that you have an echocardiogram done once more at the 3 month shweta. Your primary care provider will order that for you. We determined that you did not need oxygen for discharge. Due to your weakness, we are discharging you home with a walker and home health services for physical and occupational therapy. The linux architect you saw in the hospital also recommended follow up in the outpatient setting with cardiology for a stress test. Please follow up with them as scheduled. Total Time Total Time Spent Total Time Spent (In Minutes): >30 minutes
[2023-02-02] MEDS ORDERED: GABAPENTIN 600 MG TAB PO SCH (10:00)
[2023-02-07] MEDS ORDERED: APIXABAN 5 MG TABLET PO SCH (21:00)
== END 2023-02-01 18:16 | disposition home health service (06) | DRG 175 ==
LOC: ED 12:22 → 2S 17:11 → SUATTDRO 17:11 → 2S 19:17